=== PATIENT | male | born 1945 | race Caucasian/White ===

== ENCOUNTER 2017-03-12 12:01 | Inpatient (IN) ==
[2017-03-12] MEDS ORDERED: SODIUM CHLORIDE 0.9% 1,000 ML IV STA (12:18)
[2017-03-12] MEDS ORDERED: ONDANSETRON 4 MG/2 ML VIAL IV STA (12:18)
--- NOTE | 2017-03-12 12:23 | Emergency Department Note ---
Arrival - Arrival Chief Complaint: Nausea/Vomiting/Diarrhea Stated Complaint: vomiting, diarrhea, weakness, dehydrated ED Nursing Triage Note: Pt c/o nausea, vomiting, diarrhea, and weakness x 2 wks. Mode of Arrival: Wheelchair Limitations: No Limitations Source: Patient, RN Notes Reviewed Time Seen by Provider: 03/12/17 12:14 - History of Present Illness HPI Narrative: Patient is a 71-year-old white male with a history of nausea vomiting for 3 weeks. The patient has had a decrease in his appetite and decreased oral intake. There is no history of chills or fever. Patient denies any dysuria or urinary frequency. He does have some lower abdominal discomfort. Patient states that he has had a bowel movement this morning. He is status post cholecystectomy, appendectomy, and bilateral inguinal herniorrhaphies. Onset (ago): week(s) (3) Consistency: constant Quality: other Allergies/Adverse Reactions: Allergies Allergy/AdvReac Type Severity Reaction Status Date / Time acetaminophen AdvReac Verified 07/17/16 17:39 Home Medications: Home Medications Medication Instructions Recorded Confirmed Type ARIPiprazole [Abilify] 5 mg PO DAILY 03/13/16 09/16/16 History Simvastatin [Zocor] 10 mg PO DAILY 03/13/16 09/16/16 History Vilazodone HCl [Viibryd] 40 mg PO DAILY 03/17/16 09/16/16 History Apixaban [Eliquis] 5 mg PO BID #60 tablet 03/24/16 09/16/16 Rx Fluticasone/Vilanterol [Breo 1 puff INH DAILY 07/15/16 09/16/16 History Ellipta 200-25 Mcg INH] Furosemide Tab [Lasix Tab] 40 mg PO QOTHER DAY PRN 07/15/16 09/16/16 History LORazepam TAB [Ativan Tab] 1 mg PO TID PRN 07/15/16 09/16/16 History Carvedilol [Coreg] 25 mg PO BID 07/17/16 09/16/16 History Diltiazem Cd Cap [Cardizem CD] 120 mg PO DAILY #30 capsule 07/27/16 09/16/16 Rx Albuterol Inhaler [Proventil 2 puff INH Q4H PRN #1 inhaler 09/16/16 Rx Inhaler] Cyclobenzaprine HCl 5 mg PO TID #30 tablet 09/16/16 Rx HYDROcodone/ACETAMIN 5-325 [Sun 1 tablet PO Q6H PRN #10 tablet 09/16/16 Rx 5-325] Ubidecarenone [Coenzyme Q10] 200 mg PO BEDTIME 09/16/16 09/16/16 History cefUROXime axetil [Cefuroxime] 500 mg PO BID 09/16/16 09/16/16 History predniSONE TAB [PredniSONE] 60 mg PO DAILY #9 tablet 09/16/16 Rx Oxycodone HCl/Acetaminophen 1 each PO Q4-6H PRN #12 tablet 02/11/17 Rx [Percocet 7.5-325 mg Tablet] Review of System - Review of System 12 point system: reviewed and no additional remarkable complaints except as stated Medical,Surgical,& Family Hx - Medical History Cardio: History of: Cardiac Dysrhythmia (afib), CHF, Hypertension Psychological: History of: Anxiety Disorders, Depression Neurology: History of: Seizures No history of: Cerebrovascular Accident HEENT: History of: Dental Problems (Upper dentures) Endocrine: History of: Dyslipidemia Rheumatology: History of;: Gout Respiratory: History of: COPD, Pulmonary Embolism (2009 and 03/2016), Pneumonia Renal: History of: Renal Failure Gastrointestinal: History of: Pancreatitis (recurrent episodes in the past secondary to alcohol use) Musculoskeletal: History of: Back/Neck Problems, Herniated Disk, Musculoskeletal Problems (BACK "PROBLEMS") Other: No history of: Cancer - Surgical History Cardiac Surgeries: Sugical HX of: Cardiac Catheterization Thoracic Surgeries: Patient denies;: Organ Transplant Neurologic Surgeries: Patient denies: Neurologic Surgery HEENT Surgeries: Surgical HX of: Tonsilectomy & Adenoidectomy Abdominal Surgeries: Surgical HX of: Abdominal Surgery, Appendectomy, Cholecystectomy, Colonoscopy, EGD Orthopedic Surgeries: Surgical HX of;: Orthopedic Surgery (Carpal tunnel surgery (Bilateral)), Total Hip Replacement (left hip) - Family History Family History: Reports;: Family Cancer, Family Heart Disease (father-heart attack), Family Stroke - Social History Smoking Status: Former smoker Exam Vital Signs: Vital Signs Temperature 97.9 F 03/12/17 12:11 Pulse Rate 66 03/12/17 13:16 Respiratory Rate 10 L 03/12/17 13:16 Blood Pressure 101/75 03/12/17 13:16 O2 Sat by Pulse Oximetry 98 03/12/17 13:16 GENERAL: This is a chronically ill-appearing white male in no apparent distress. VITAL SIGNS: Reviewed HEENT: Head is atraumatic and normocephalic. Pupils are equal round react to light. Extraocular movements are intact. Oropharynx is benign with dry mucous membranes. NECK: Neck is soft and supple without tenderness. There are no masses. There is no lymphadenopathy. LUNGS: Lungs are clear to auscultation. Chest rises symmetrically. There is no chest wall tenderness. CV: Heart is regular rate and rhythm without murmurs rubs or gallops. ABDOMEN: Abdomen is soft, nontender to palpation. There are no abdominal abnormal masses palpated. There is no organomegaly. Bowel sounds are present and active. SKIN: Skin is warm and dry. No rash. EXTREMITIES: Patient has full range of motion without tenderness. There is no pedal edema. NEUROLOGIC: Awake alert and oriented 4 Cranial nerves II through XII are grossly intact. Motor is 5 over 5 in all extremities bilaterally. Course - Consultations Consultation #1: Discussed with hospitalist. Patient will be admitted to their service. Time: 15:00 Results - Labs CBC & BMP: 03/12/17 12:38 Lab Results: I have reviewed the patients labs - Diagnostic Findings Procedure: Abdominal x-ray: image reviewed by me (Nonspecific gas pattern, no free air, gas in the rectum.) Disposition Clinical Impression: Nausea & vomiting, Acute renal failure, Hypokalemia Case discussed with: patient Disposition: Still a Patient Condition: Stable
[2017-03-12] MEDS ORDERED: ONDANSETRON 4 MG/2 ML VIAL ONE (13:11)
--- NOTE | 2017-03-12 13:33 | XRay Report ---
XR abdomen complete w decub Indication: Nausea, vomiting, and diarrhea Comparison: Abdominal x-ray dated February 04, 2016 Technique: Frontal views of the abdomen in the supine and lateral decubitus position. Findings: There is mild distention of the transverse colon with associated air-fluid level. This finding is nonspecific but may be seen with mild colitis/diarrhea causing illness. No free intraperitoneal air. Visualized osseous and surrounding soft tissue structures appear grossly unchanged. Surgical clips within the right upper quadrant of the abdomen. Left total hip prosthesis. Presumed pelvic phleboliths. IMPRESSION: As above. PROCEDURE INTERPRETED AT [facility] DEPARTMENT OF RADIOLOGY Final Report Signed by: Dr Kentrell Wade
[2017-03-12 14:08] LABS: Apearance,Urine CLEAR (Clear); Bilirubin,Urine Negative (Negative); Blood, Urine Negative (Negative); Glucose,Urine (UA) Negative (Negative); Hyaline Casts,Urine 4 /LPF (0-3); Ketones,Urine Negative (Negative); Mucus,Urine Occasional /LPF (Occasional); Nitrite,Urine Negative (Negative); Protein,Urine Negative; RBC,Urine <1 /HPF (0-4); Urine Color Yellow (Yellow); Urine Specific Gravity 1.008 (1.001-1.035); Urine Urobilinogen < 2.0 EU/DL (0.2-1.0); WBC,Urine 1 /HPF (0-6)
[2017-03-12 14:20] LABS: Albumin 3.6 G/DL (3.4-5.0); Calcium 8.6 MG/DL (8.5-10.1); Osmolality,Calculated 285.7 MOS/KG (273-304); Potassium 2.9 MMOL/L (3.5-5.1); Total Protein 6.4 G/DL (6.4-8.3)
[2017-03-12] MEDS ORDERED: SODIUM CHLOR 0.9% KCL 40 MEQ 40 MEQ/1,000 ML BAG IV SCH (15:00)
--- NOTE | 2017-03-12 15:45 | Ultrasound Report ---
History is acute renal failure Right kidney is 8.8 cm in length Left kidney is 11.8 cm in length There is diffuse relative cortical thinning in the right kidney compared to the left There is a 2.1 cm simple cyst lower pole of the left kidney There is a 2.8 cm cyst with question of some low level echoes in the right kidney similar on a prior study of October 2016 and also present on a prior CT of 2008 There is arterial flow to both kidneys No hydronephrosis seen bilaterally Impression: 1. Relatively decreased size and diffuse cortical thinning in the right kidney raising question of underlying scarring or renal artery stenosis 2. Up to 2.7 cm bilateral renal cysts again seen PROCEDURE INTERPRETED AT [facility] DEPARTMENT OF RADIOLOGY Final Report Signed by: Dr. Kim Phan
[2017-03-12 15:51] LABS: Basophils % 0.4 % (0.0-0.8); Eosinophils # 0.4 10*3/uL (0.0-0.87); Eosinophils % 3.8 % (0.00-10.9); Hematocrit 45.6 VOL% (42.0-52.0); Hemoglobin 15.5 GM/DL (14.0-18.0); Immature Granulocytes % 0.5 %; Immature Granulocytes Absolute 0.05 #; Lymphocytes # 1.3 10*3/uL (1.4-4.0); Lymphocytes % 12.8 % (21.2-54.2); Mean Corpuscular Hemoglobin 31 PG (27-34); Mean Corpuscular Volume 89.8 FL (87-102); Mean Platelet Volume 11.2 FL (9.6-12.0); Monocytes # 0.9 10*3/uL (0.11-0.8); Monocytes % 9.4 % (1.7-12.7); Neutrophils # 7.2 10*3/uL (1.4-7.4); Neutrophils % 73.1 % (38.7-73.9); Platelet Count 189 T/CUMM (130-400); Red Blood Count 5.08 MC/CUMM (3.8-5.5); Red Cell Distribution Width 13.4 % (9.3-17.3); White Blood Count 9.9 T/CUMM (4-12)
--- NOTE | 2017-03-12 16:13 | Hospitalist History & Physical ---
<Chuyita Manley - Last Filed: 03/12/17 16:27> Assessment and Plan (1) Acute on chronic renal failure Status: Acute Assessment and plan: Multifactorial secondary to dehydration from Lasix, Bactrim, colitis, nausea vomiting. Consult Dr. Longoria Current Visit: Yes (2) Colitis Status: Acute Assessment and plan: Stool studies hold off on antibiotics until we know C. difficile is negative Zofran for nausea Current Visit: Yes (3) Hypertension Status: Chronic Assessment and plan: Hold blood pressure medicines as his pressure is low and we do not want to worsen his renal function Current Visit: No (4) Gout Status: Acute Assessment and plan: Hold colchicine creatinines too high to tolerate. Current Visit: No (5) Pulmonary emboli Status: Acute Assessment and plan: Continue Eliquis. Current Visit: No (6) Anxiety and depression Status: Acute Assessment and plan: Continue medications for now Current Visit: No (7) Narcotic dependence Status: Chronic Assessment and plan: Suboxone only do not give narcotics Current Visit: No (8) COPD (chronic obstructive pulmonary disease) Status: Chronic Assessment and plan: Duo nebs and inhaler Current Visit: No (9) Atrial fibrillation with RVR Status: Acute Assessment and plan: Continue Eliquis Current Visit: No (10) Nausea & vomiting Status: Acute Assessment and plan: Zofran as needed for nausea. May have colitis and may need IV antibiotics. Want to see stool for C. difficile before starting any other antibiotic Current Visit: Yes (11) Hypokalemia Status: Acute Assessment and plan: Replacing and recheck in am Current Visit: Yes History of Present Illness Chief complaint: n/v/d History of present illness: Mr. Slade is a 71 year old male with a history of nausea vomiting and diarrhea for 3 weeks. The patient has had a decrease in his appetite and decreased oral intake. There is no history of chills or fever. Patient denies any dysuria or urinary frequency. He does have some lower abdominal discomfort. Patient states that he has had a bowel movement this morning. He is status post cholecystectomy, appendectomy, and bilateral inguinal herniorrhaphies. Home Medications Medication Instructions Recorded Confirmed Type Simvastatin [Zocor] 10 mg PO QPM 03/13/16 03/12/17 History Vilazodone HCl [Viibryd] 40 mg PO DAILY 03/17/16 03/12/17 History Apixaban [Eliquis] 5 mg PO BID #60 tablet 03/24/16 03/12/17 Rx Furosemide Tab [Lasix Tab] 40 mg PO DAILY 07/15/16 03/12/17 History Carvedilol [Coreg] 25 mg PO BID 07/17/16 03/12/17 History Buprenorphine HCl 8 mg SL BID 03/12/17 03/12/17 History Colchicine 0.6 mg PO DAILY 03/12/17 03/12/17 History Docusate Sodium 100 mg PO DAILY 03/12/17 03/12/17 History Metoprolol Tartrate Tab [Lopressor 12.5 mg PO DAILY 03/12/17 03/12/17 History Tab] Potassium Chloride 10 meq PO DAILY 03/12/17 03/12/17 History Ubidecarenone [Co Q-10] 50 mg PO BEDTIME 03/12/17 03/12/17 History Ziprasidone HCl 60 mg PO BID W/MEALS 03/12/17 03/12/17 History metOLazone [Metolazone] 5 mg PO DAILY 03/12/17 03/12/17 History Allergies Allergy/AdvReac Type Severity Reaction Status Date / Time No Known Allergies Allergy Verified 03/12/17 16:07 Medical,Surgical,& Family Hx - Medical History Cardio: History of: Cardiac Dysrhythmia (afib), CHF, Hypertension Psychological: History of: Anxiety Disorders, Depression Neurology: History of: Seizures No history of: Cerebrovascular Accident HEENT: History of: Dental Problems (Upper dentures) Endocrine: History of: Dyslipidemia Rheumatology: History of;: Gout Respiratory: History of: COPD, Pulmonary Embolism (2009 and 03/2016), Pneumonia Renal: History of: Renal Failure Gastrointestinal: History of: Pancreatitis (recurrent episodes in the past secondary to alcohol use) Musculoskeletal: History of: Back/Neck Problems, Herniated Disk, Musculoskeletal Problems (BACK "PROBLEMS") Other: No history of: Cancer - Surgical History Cardiac Surgeries: Sugical HX of: Cardiac Catheterization Thoracic Surgeries: Patient denies;: Organ Transplant Neurologic Surgeries: Patient denies: Neurologic Surgery HEENT Surgeries: Surgical HX of: Tonsilectomy & Adenoidectomy Abdominal Surgeries: Surgical HX of: Abdominal Surgery, Appendectomy, Cholecystectomy, Colonoscopy, EGD Orthopedic Surgeries: Surgical HX of;: Orthopedic Surgery (Carpal tunnel surgery (Bilateral)), Total Hip Replacement (left hip) - Family History Family History: Reports;: Family Cancer, Family Heart Disease (father-heart attack), Family Stroke - Social History Smoking Status: Former smoker Frequency of Alcohol Use: None Marital Status: Lives With:: Spouse Functional capacity: uses cane/walker - Constitutional Constitutional: Present: fatigue - EENT Ears: Present: decreased hearing. Absent: ear discharge - Cardiovascular Cardiovascular: Present: dyspnea, dyspnea on exertion. Absent: chest pain at rest - Respiratory Respiratory: Present: dyspnea, dyspnea on exertion - Gastrointestinal Gastrointestinal: Present: diarrhea, nausea, vomiting. Absent: constipation - Genitourinary Genitourinary: Absent: dysuria - Psychiatric Psychiatric: Present: anxiety, depression - Endocrine Endocrine: Present: fatigue. Absent: cold intolerance - Hematologic/Lymphatic Hematologic/Lymphatic: Present: easy bleeding, easy bruising Exam - Constitutional Vitals: Period Temp Pulse Resp BP Sys/Rangel Pulse Ox Last 24 Hr 97.9 F-97.9 F 66-75 10-20 101-150/59-92 97-100 General appearance: no acute distress, over weight - Head Head exam: Present: normal inspection, normocephalic - Eye Eye exam: Present: EOMI. Absent: scleral icterus Pupils: Present: [place], normal accommodation - ENT ENT exam: Present: normal exam, normal external ear exam - Neck Neck exam: Absent: lymphadenopathy, thyromegaly - Respiratory Respiratory exam: Present: clear to auscultation bilaterally, decreased breath sounds. Absent: rhonchi, wheezes - Cardiovascular Cardiovascular exam: Present: regular rate and rhythm. Absent: systolic murmur - GI/Abdominal GI/Abdominal exam: Present: normal bowel sounds, soft. Absent: tenderness - Extremities Exam Extremities exam: Present: normal inspection, normal capillary refill. Absent: edema - Neurological Exam Neurological exam: Present: alert, oriented X3, CN II-XII intact, motor sensory deficit (diminished motor strength ), reflexes normal - Psychiatric Psychiatric exam: Present: depressed, flat affect - Skin Skin exam: Present: normal color, warm Results - Labs CBC & BMP: 03/12/17 12:38 03/12/17 12:38 Lab Results: I have reviewed the past 24 hour labs - Diagnostic Findings Procedure: Abdominal x-ray: report reviewed by me (Possible colitis), Ultrasound : report reviewed by me (Cortical thinning of the kidney possible renal artery stenosis.) <Lico Amin - Last Filed: 03/12/17 16:53> Assessment and Plan - Time spent with patient Time spent with patient: Greater than 30 minutes History of Present Illness History of present illness: Mr. Slade is a 71 year old white male with an extensive past medical history COPD, renal failure, CAD, CHF who presents to the ED with complaints of nausea, vomiting and diarrhea for 3 weeks. The patient and his , who is at bedside, report that the patient has been progressively getting worse for the last 3 weeks to a month. The patient reports that he was recently seen at [facility] and believes to have contracted a gastroenteritis at that time. Patient's says that there were "lots of children vomiting everywhere". Patient also notes that he recently finished Bactrim therapy status post melanoma excision of the right calf. Patient has decreased appetite as well as oral intake. He denies any hematemesis, melena or hematochezia. Patient and his believe that he has had a lifelong history of irritable bowel syndrome with constipation and diarrhea. Patient notes that he does take stool softeners as needed. Labs are remarkable for sodium 138, potassium 2.9, BUN 43 , creatinine 3.10. Patient is followed by Dr. Longoria and he has been consulted. Case has been discussed with Dr. Manley, and the patient will be admitted to hospital medicine service for further evaluation and treatment. Patient was desired to be full code. Medicines have been reviewed and reconciled. - Musculoskeletal Musculoskeletal: Present: arthralgias, back pain - Neurological Neurological: Present: numbness. Absent: confusion, dizziness Exam - Constitutional Vitals: Period Temp Pulse Resp BP Sys/Rangel Pulse Ox Last 24 Hr 97.9 F-97.9 F 66-76 10-20 101-150/59-92 97-100 Results - Labs CBC & BMP: 03/12/17 12:38 03/12/17 12:38
[2017-03-12] MEDS: POTASSIUM CHLORIDE INJ 40 MEQ in SODIUM CHLORIDE 0.45% 1,000 ML IV SCH (18:00)
[2017-03-12] MEDS ORDERED: MAGNESIUM SULF RIDER 2 GM in PREMIX 1 EACH IV ONE (18:24)
[2017-03-12] MEDS ORDERED: MAGNESIUM SULF RIDER 2 GM in PREMIX 1 EACH IV SCH (18:30)
[2017-03-12] MEDS: ALBUTEROL/IPRATROPIUM 3 ML NEB RESP TX SCH ×2 (19:37→23:46)
[2017-03-12] MEDS: PANTOPRAZOLE 40 MG VIAL IV SCH (20:15)
[2017-03-12] MEDS: APIXABAN 5 MG TABLET PO SCH (20:15)
[2017-03-12] MEDS: SUBUTEX 8 MG SL SCH (20:26)
[2017-03-13] MEDS: ALBUTEROL/IPRATROPIUM 3 ML NEB RESP TX SCH ×6 (02:43→23:30)
[2017-03-13] MEDS: POTASSIUM CHLORIDE INJ 40 MEQ in SODIUM CHLORIDE 0.45% 1,000 ML IV SCH ×2 (04:36→10:07)
[2017-03-13 06:19] LABS: Basophils % 0.4 % (0.0-0.8); Eosinophils # 0.4 10*3/uL (0.0-0.87); Eosinophils % 4.5 % (0.00-10.9); Hematocrit 42.2 VOL% (42.0-52.0); Hemoglobin 14.1 GM/DL (14.0-18.0); Immature Granulocytes % 0.4 %; Immature Granulocytes Absolute 0.04 #; Lymphocytes # 1.1 10*3/uL (1.4-4.0); Lymphocytes % 12.2 % (21.2-54.2); Mean Corpuscular HGB Conc 33.4 GM/DL (32-36); Mean Corpuscular Hemoglobin 31 PG (27-34); Mean Corpuscular Volume 91.1 FL (87-102); Mean Platelet Volume 10.6 FL (9.6-12.0); Monocytes # 0.8 10*3/uL (0.11-0.8); Monocytes % 8.7 % (1.7-12.7); Neutrophils # 6.8 10*3/uL (1.4-7.4); Neutrophils % 73.8 % (38.7-73.9); Platelet Count 166 T/CUMM (130-400); Red Blood Count 4.63 MC/CUMM (3.8-5.5); Red Cell Distribution Width 13.4 % (9.3-17.3); White Blood Count 9.2 T/CUMM (4-12)
[2017-03-13 06:52] LABS: Calcium 8.4 MG/DL (8.5-10.1); Osmolality,Calculated 291.1 MOS/KG (273-304); Potassium 4.1 MMOL/L (3.5-5.1)
[2017-03-13] MEDS: PANTOPRAZOLE 40 MG VIAL IV SCH ×2 (08:24→20:15)
[2017-03-13] MEDS: SUBUTEX 8 MG SL SCH ×2 (08:24→20:15)
[2017-03-13] MEDS: APIXABAN 5 MG TABLET PO SCH ×2 (08:25→20:15)
[2017-03-13] MEDS: SIMVASTATIN 10 MG TABLET PO SCH (08:25)
[2017-03-13] MEDS ORDERED: BREO ELLIPTA INH SCH (09:00)
[2017-03-13] MEDS ORDERED: ARIPiprazole 5 MG TABLET PO SCH (09:00)
[2017-03-13] MEDS ORDERED: methylPREDNISolone SOD SUC 40 MG/1 ML VIAL IV SCH (09:00)
[2017-03-13] MEDS: ONDANSETRON 4 MG/2 ML VIAL IV PRN ×2 (10:05→14:32)
[2017-03-13] MEDS: LORazepam 0.5 MG TABLET PO SCH ×3 (11:01→20:15)
[2017-03-13] MEDS: METOPROLOL TARTRATE 25 MG TABLET PO SCH (11:01)
[2017-03-13] MEDS: DOCUSATE SODIUM 100 MG CAPSULE PO SCH (11:01)
[2017-03-13] MEDS: SODIUM CHLORIDE 0.45% 1,000 ML IV SCH ×3 (11:02→20:16)
[2017-03-13 12:00] LABS: Bilirubin,Total 0.5 MG/DL (0.2-1.0)
[2017-03-13] MEDS ORDERED: LORazepam 0.5 MG TABLET PO SCH (15:00)
--- NOTE | 2017-03-13 15:42 | Hospitalist Progress Note ---
Assessment and Plan (1) Acute on chronic renal failure Status: Acute Assessment and plan: Improving with IV fluids. Dr. Longoria agrees with continue hydration. Continue to monitor. Current Visit: Yes (2) Colitis Status: Acute Assessment and plan: Patient no longer having diarrhea, start Invanz Current Visit: Yes (3) Hypertension Status: Chronic Assessment and plan: controlled Current Visit: No (4) Gout Status: Acute Assessment and plan: Hold colchicine creatinines too high to tolerate. cont steroids Current Visit: No (5) Pulmonary emboli Status: Acute Assessment and plan: Continue Eliquis. Current Visit: No (6) Anxiety and depression Status: Acute Assessment and plan: Restarted Geodon, vilazodone Current Visit: No (7) Narcotic dependence Status: Chronic Assessment and plan: Suboxone only do not give narcotics Current Visit: No (8) COPD (chronic obstructive pulmonary disease) Status: Chronic Assessment and plan: Duo nebs and inhaler Current Visit: No (9) Atrial fibrillation with RVR Status: Acute Assessment and plan: Continue Eliquis and metoprolol Current Visit: No (10) Nausea & vomiting Status: Acute Assessment and plan: Zofran as needed for nausea. Current Visit: Yes (11) Hypokalemia Status: Acute Assessment and plan: Resolved Current Visit: Yes (12) Hypomagnesemia Status: Acute Assessment and plan: Replaced and recheck in a.m. Current Visit: Yes Hospitalist: Subjective Interval history: Discussed case with Dr. Longoria. Patient is chronically unhappy. at bedside had long conversation with him about pain medicine once again. Patient is on Suboxone. He does have a gout flare which we are treating with IV steroids as he cannot take colchicine due to his kidneys. We have started back his Ativan. He is home medicines the Abilify he is no longer taking but he was recently started on Geodon which we will now restart. He is more alert and awake today. He was lethargic yesterday and I was concerned about some of his medicines not clearing his kidneys. Pharmacy has reviewed the medicines and is okay with restarting the medications currently on his list. Exam - Constitutional Vitals: Period Temp Pulse Resp BP Sys/Rangel Pulse Ox Last 24 Hr 97.9 F-98.8 F 63-94 13-20 100-144/65-90 92-99 Exam: Heart Rate-[RRR] Lungs-[CTAB] GI-[+bs soft, NT] Ext-[no edema] Neuro [Motor 5/5], [alert and oriented times 3] psych [unhappy mood and affect General [mild acute distress due to gout] Results - Labs CBC & BMP: 03/13/17 05:51 03/13/17 05:51 Lab Results: I have reviewed the past 24 hour labs - Diagnostic Findings Procedure: Ultrasound: report reviewed by me (Cortical thinning of the right kidney raising concern of renal artery stenosis versus underlying scarring.)
[2017-03-13] MEDS: ZIPRASIDONE 20 MG CAPSULE PO SCH (17:06)
[2017-03-13] MEDS: ERTAPENEM 1,000 MG in SODIUM CHLORIDE 0.9% 100 ML IV SCH (18:01)
[2017-03-13] MEDS: methylPREDNISolone SOD SUC 40 MG/1 ML VIAL IV SCH (20:15)
[2017-03-14] MEDS: ALBUTEROL/IPRATROPIUM 3 ML NEB RESP TX SCH ×5 (03:24→19:14)
[2017-03-14 05:17] LABS: Calcium 8.4 MG/DL (8.5-10.1); Osmolality,Calculated 285.4 MOS/KG (273-304); Potassium 3.9 MMOL/L (3.5-5.1)
[2017-03-14] MEDS: SODIUM CHLORIDE 0.45% 1,000 ML IV SCH ×5 (06:09→23:00)
[2017-03-14] MEDS: SUBUTEX 8 MG SL SCH ×2 (08:54→21:18)
[2017-03-14] MEDS: APIXABAN 5 MG TABLET PO SCH ×2 (08:55→21:18)
[2017-03-14] MEDS: ZIPRASIDONE 20 MG CAPSULE PO SCH ×2 (08:55→16:32)
[2017-03-14] MEDS: LORazepam 0.5 MG TABLET PO SCH ×3 (08:55→21:18)
[2017-03-14] MEDS: DOCUSATE SODIUM 100 MG CAPSULE PO SCH (08:55)
[2017-03-14] MEDS: METOPROLOL TARTRATE 25 MG TABLET PO SCH (08:55)
[2017-03-14] MEDS: PANTOPRAZOLE 40 MG VIAL IV SCH ×2 (08:56→21:18)
[2017-03-14] MEDS: SIMVASTATIN 10 MG TABLET PO SCH (08:56)
[2017-03-14] MEDS: methylPREDNISolone SOD SUC 40 MG/1 ML VIAL IV SCH ×2 (09:01→21:18)
--- NOTE | 2017-03-14 10:09 | Nephrology Progress Note ---
Nephrology - PN: Subj Interval history: Patient states his gout pain in his foot is better. Review of systems pulmonary denies shortness of breath Physical exam general the patient in no acute distress, he has trace pretibial edema Assessment/plan 1. Acute renal failure-this patient's creatinine is improved to 1.7 mg/dL from around 3.1 mg/dL. 2. Volume depletion-patient describes having nausea and vomiting for a couple weeks prior to his admission feeling very poorly. The patient is currently getting IV fluids 3. Gout-this is improved 4. Colitis-patient's abdominal symptoms seem to be improving. Exam (PN)-Nephrology - Vital Signs Vital signs: Period Temp Pulse Resp BP Sys/Rangel Pulse Ox Last 24 Hr 97.7 F-98.6 F 60-78 16-20 117-145/61-79 87-99 - Lab 03/13/17 05:51 03/14/17 03:52 Most recent lab results Calcium 8.4 MG/DL (8.5-10.1) L 03/14/17 03:52 Magnesium 2.2 MG/DL (1.8-2.4) 03/14/17 03:52
[2017-03-14] MEDS ORDERED: BISACODYL 5 MG TABLET PO PRN (10:48)
[2017-03-14] MEDS ORDERED: BISACODYL 5 MG TABLET PO ONE (10:58)
[2017-03-14] MEDS: ONDANSETRON 4 MG/2 ML VIAL IV PRN (11:26)
[2017-03-14] MEDS: POLYETHYLENE GLYCOL POWDER 17 GM PACK PO SCH (11:26)
--- NOTE | 2017-03-14 13:51 | Hospitalist Progress Note ---
Assessment and Plan (1) Acute on chronic renal failure Status: Acute Assessment and plan: Improving with IV fluids but will decrease down to 75 ML's per hour continue to monitor BMP possibly home in a.m. Current Visit: Yes (2) Colitis Status: Acute Assessment and plan: Continue invanz Current Visit: Yes (3) Hypertension Status: Chronic Assessment and plan: controlled Current Visit: No (4) Gout Status: Acute Assessment and plan: Pain controlled with steroids but Dr. Brewster feels that I can get him back colchicine renal adjusted. Current Visit: No (5) Pulmonary emboli Status: Acute Assessment and plan: Continue Eliquis. Current Visit: No (6) Anxiety and depression Status: Acute Assessment and plan: Continue Ativan, Geodon, vilazodone Current Visit: No (7) Narcotic dependence Status: Chronic Assessment and plan: Suboxone only do not give narcotics Current Visit: No (8) COPD (chronic obstructive pulmonary disease) Status: Chronic Assessment and plan: Duo nebs and inhaler Current Visit: No (9) Atrial fibrillation with RVR Status: Acute Assessment and plan: Continue Eliquis and metoprolol Current Visit: No (10) Nausea & vomiting Status: Acute Assessment and plan: Resolved Current Visit: Yes (11) Hypokalemia Status: Acute Assessment and plan: Resolved Current Visit: Yes (12) Hypomagnesemia Status: Acute Assessment and plan: Resolved Current Visit: Yes Hospitalist: Subjective Interval history: Discussed case with Dr. Brewster. He said it is okay to give him back the colchicine renal adjusted. Patient has not had a good bowel movement we will give him Dulcolax and MiraLAX. He feels much better today he slept last night and the steroids of taking care of his gout pain. Exam - Constitutional Vitals: Period Temp Pulse Resp BP Sys/Rangel Pulse Ox Last 24 Hr 97.6 F-98.6 F 60-78 16-20 117-145/61-79 87-98 Exam: Heart Rate-[RRR] Lungs-[CTAB] GI-[+bs soft, NT] Ext-[no edema] Neuro [Motor 5/5], [alert and oriented times 3] psych [unhappy mood and flat affect General [no acute distress] Results - Labs CBC & BMP: 03/13/17 05:51 03/14/17 03:52 Lab Results: I have reviewed the past 24 hour labs
[2017-03-14] MEDS: COLCHICINE 0.6 MG TABLET PO SCH (14:50)
[2017-03-14] MEDS: ERTAPENEM 1,000 MG in SODIUM CHLORIDE 0.9% 100 ML IV SCH (16:32)
[2017-03-15] MEDS: ALBUTEROL/IPRATROPIUM 3 ML NEB RESP TX SCH ×3 (00:10→07:59)
[2017-03-15] MEDS: SODIUM CHLORIDE 0.45% 1,000 ML IV SCH (03:29)
[2017-03-15 05:04] LABS: Calcium 8.6 MG/DL (8.5-10.1); Osmolality,Calculated 286.4 MOS/KG (273-304); Potassium 4.5 MMOL/L (3.5-5.1)
[2017-03-15] MEDS: ONDANSETRON 4 MG/2 ML VIAL IV PRN ×2 (05:27→10:00)
[2017-03-15] MEDS: PANTOPRAZOLE 40 MG VIAL IV SCH (08:43)
[2017-03-15] MEDS: ZIPRASIDONE 20 MG CAPSULE PO SCH (08:44)
[2017-03-15] MEDS: COLCHICINE 0.6 MG TABLET PO SCH (08:44)
[2017-03-15] MEDS: LORazepam 0.5 MG TABLET PO SCH (08:44)
[2017-03-15] MEDS: SIMVASTATIN 10 MG TABLET PO SCH (08:46)
[2017-03-15] MEDS: APIXABAN 5 MG TABLET PO SCH (08:46)
[2017-03-15] MEDS: METOPROLOL TARTRATE 25 MG TABLET PO SCH (08:46)
[2017-03-15] MEDS: POLYETHYLENE GLYCOL POWDER 17 GM PACK PO SCH (08:47)
[2017-03-15] MEDS: SUBUTEX 8 MG SL SCH (08:47)
[2017-03-15] MEDS: methylPREDNISolone SOD SUC 40 MG/1 ML VIAL IV SCH (09:08)
--- NOTE | 2017-03-15 09:26 | Discharge Summary ---
<Lico Amin - Last Filed: 03/15/17 08:57> Hospital Course - Hospital Course Hospital Course: Mr. Slade is a 69-year-old white male with history of atrial fib, pulmonary emboli, gout, narcotics and benzo dependence admitted through the [place] [facility] on 03/12/2017 with a history of nausea vomiting and diarrhea for 3 weeks. Patient presented with decreased appetite and decreased oral intake as well as lower abdominal discomfort. On admission the patient was found to have acute on chronic renal failure creatinine of 3.10, COPD exacerbation, colitis, and acute gouty flare. Renal ultrasound on admission revealed relatively decreased size of diffuse cortical thinning in the right kidney. We consulted Dr. Longoria for renal failure and the patient was started on gentle IV hydration as his acute renal failure was likely secondary to dehydration from Lasix, Bactrim, colitis and nausea and vomiting. Due to elevated creatinine levels, colchicine was held and the gout flare was treated with IV steroids (Solu-Medrol ). We continued the patient's Eliquis for his pulmonary emboli and atrial fibrillation as well as metoprolol for rate control. This patient's hospital course was relatively uncomplicated as his renal failure improved with IV fluids bringing the creatinine to 1.6, colitis is being treated with Invanz. With improved creatinine levels, we restarted colchicine renal adjusted. Duo nebs and inhaler for the COPD. Patient was given Dulcolax and MiraLAX to promote bowel movement. At this time the patient has reached maximum benefit from hospitalization and is stable for discharge. Discharge orders home with f/ u with PMD, Dr. Longoria and Dr Brewster or Adam. Discharge Plan - Discharge Data Disposition: Disch To Home/Self Care - Discharge Medications New metroNIDAZOLE TAB [Flagyl Cap/Tab] 500 mg PO TID #30 tablet Polyethylene Glycol Powder [Miralax] 17 gm PO DAILY predniSONE TAB [PredniSONE] 20 mg PO DAILY #30 tablet Albuterol/Ipratropium Neb [Duoneb] 3 ml RESP TX RT TID #90 vial Ciprofloxacin Tab [Cipro Tab] 500 mg PO BID #20 tablet Continue Simvastatin [Zocor] 10 mg PO QPM Vilazodone HCl [Viibryd] 40 mg PO DAILY Apixaban [Eliquis] 5 mg PO BID #60 tablet Metoprolol Tartrate Tab [Lopressor Tab] 12.5 mg PO DAILY Buprenorphine HCl 8 mg SL BID Colchicine 0.3 mg PO DAILY #0 Furosemide Tab [Lasix Tab] 20 mg PO DAILY PRN #0 PRN Reason: leg edema LORazepam [Lorazepam] 0.5 mg PO TID PRN #0 PRN Reason: Anxiety Ubidecarenone [Co Q-10] 50 mg PO BEDTIME Ziprasidone HCl 60 mg PO BID W/MEALS Discontinued Potassium Chloride 10 meq PO DAILY metOLazone [Metolazone] 5 mg PO DAILY Docusate Sodium 100 mg PO DAILY No Action Carvedilol [Coreg] 25 mg PO BID - Follow Up or Referral Follow Up: dr ryan [Other] - 1 Week Gaetano Longoria MD [Physician] - 2 Weeks Ney Medina MD [Physician] - 2 Weeks (colitis ) - Forms/Instructions Exam - Constitutional Vitals: Period Temp Pulse Resp BP Sys/Rangel Pulse Ox Last 24 Hr 97.4 F-98.0 F 63-99 16-20 121-144/63-86 93-98 Discharge Results Procedures and tests throughout hospitalization: Pending Orders 03/12/17 17:02 C. Diff Toxins A & B Stat Norovirus, Stool Stat Occult Blood, Stool Stat Stool Culture Stat Stool for WBCs Stat Labs on day of discharge: Labs from last 24 hours 03/15/17 03/15/17 03/14/17 03:43 03:43 20:30 Sodium 140 Potassium 4.5 Chloride 105 Carbon Dioxide 25 Anion Gap 14.5 BUN 31 H Creatinine 1.60 H GFR Calculation 53 BUN/Creatinine Ratio 19.00 Glucose 119 H POC Glucose 156 H Calculated Osmolality 286.4 Calcium 8.6 Magnesium 2.1 DS: Provider Date of admission: 03/12/17 15:27 Primary care physician: Chica Swain M.D. Attending physician on admission: Chuyita Manley MD Consults: 03/12/17 17:02 Consult to Physician [CONS] Routine Comment: renal failure Consulting Provider: Gaetano Longoria Person Notified: Adrianna Date Notified: 03/13/17 Time Notified: 09:14 03/12/17 18:24 Consult to Occupational Therapy [CONS] Routine Reason for Occupational Therapy: Evaluate and Treat Consult to Physical Therapy [CONS] Routine Reason for Physical Therapy: Evaluate and Treat 03/13/17 10:15 Consult to Pharmacy [CONS] Routine Reason for Pharmacy Consult: Inpatient Med Review Comment: not sure which home meds restart with RF Discharging clinician: Lico RIVERO Expected date of discharge: 03/15/17 <Chuyita Manley - Last Filed: 03/15/17 11:16> Hospital Course - Time spent with patient Time with patient DS: Greater than 30 minutes (60 min) Diagnosis - Discharge Diagnosis (1) Acute on chronic renal failure Status: Acute (2) Colitis Status: Acute (3) Hypertension Status: Chronic (4) Gout Status: Acute (5) Pulmonary emboli Status: Acute (6) Anxiety and depression Status: Acute (7) Narcotic dependence Status: Chronic (8) COPD (chronic obstructive pulmonary disease) Status: Chronic (9) Atrial fibrillation with RVR Status: Acute (10) Nausea & vomiting Status: Acute (11) Hypokalemia Status: Acute (12) Hypomagnesemia Status: Acute Discharge Plan - Discharge Data Condition at Discharge: Stable Discharge Diet: heart healthy Activity: resume usual activities as tolerated Hygiene: no restrictions Weight Bearing at Discharge: full weight bearing Exam - Constitutional General appearance: normal weight, no acute distress - Respiratory Respiratory exam: Present: clear to auscultation bilaterally. Absent: rhonchi, wheezes - Cardiovascular Cardiovascular exam: Present: regular rate and rhythm - GI/Abdominal GI/Abdominal exam: Present: normal bowel sounds, soft. Absent: tenderness - Extremities Exam Extremities exam: Present: normal inspection, normal capillary refill - Neurological Exam Neurological exam: Present: alert, oriented X3
[2017-03-15] MEDS: ERTAPENEM 1,000 MG in SODIUM CHLORIDE 0.9% 100 ML IV SCH (11:18)
[2017-03-15 13:32] VITALS: BP 146/83
--- NOTE | 2017-03-15 21:56 | Nephrology Consult Note ---
History of Present Illness Chief complaint: ARF on CRF History of present illness: This is a late entry note for 03/13/2017 Mr. Slade is a 71 year old male admitted with a two-week history of nausea vomiting and diarrhea. History of chronic renal insufficiency. I have followed him as an outpatient. His creatinine was 1.5 seen in the office 2016. Function was noted to be significantly worse at the time of this admission. Home Medications Medication Instructions Recorded Confirmed Type Simvastatin [Zocor] 10 mg PO QPM 03/13/16 03/12/17 History Vilazodone HCl [Viibryd] 40 mg PO DAILY 03/17/16 03/12/17 History Apixaban [Eliquis] 5 mg PO BID #60 tablet 03/24/16 03/12/17 Rx Carvedilol [Coreg] 25 mg PO BID 07/17/16 03/12/17 History Buprenorphine HCl 8 mg SL BID 03/12/17 03/12/17 History Metoprolol Tartrate Tab [Lopressor 12.5 mg PO DAILY 03/12/17 03/12/17 History Tab] Ubidecarenone [Co Q-10] 50 mg PO BEDTIME 03/12/17 03/12/17 History Ziprasidone HCl 60 mg PO BID W/MEALS 03/12/17 03/12/17 History Albuterol/Ipratropium Neb [Duoneb] 3 ml RESP TX RT TID #90 vial 03/15/17 Rx Ciprofloxacin Tab [Cipro Tab] 500 mg PO BID #20 tablet 03/15/17 Rx Colchicine 0.3 mg PO DAILY #0 03/15/17 03/12/17 Rx Furosemide Tab [Lasix Tab] 20 mg PO DAILY PRN #0 03/15/17 03/12/17 Rx LORazepam [Lorazepam] 0.5 mg PO TID PRN #0 03/15/17 03/12/17 Rx Polyethylene Glycol Powder 17 gm PO DAILY 03/15/17 Rx [Miralax] metroNIDAZOLE TAB [Flagyl Cap/Tab] 500 mg PO TID #30 tablet 03/15/17 Rx predniSONE TAB [PredniSONE] 20 mg PO DAILY #30 tablet 03/15/17 Rx Allergies Allergy/AdvReac Type Severity Reaction Status Date / Time No Known Allergies Allergy Verified 03/12/17 16:07 Medical,Surgical,& Family Hx - Medical History Cardio: History of: Cardiac Dysrhythmia (afib), CHF, Hypertension Psychological: History of: Anxiety Disorders, Depression Neurology: History of: Seizures No history of: Cerebrovascular Accident HEENT: History of: Dental Problems (Upper dentures) Endocrine: History of: Dyslipidemia Rheumatology: History of;: Gout Respiratory: History of: COPD, Pulmonary Embolism (2009 and 03/2016), Pneumonia Renal: History of: Renal Failure Gastrointestinal: History of: Pancreatitis (recurrent episodes in the past secondary to alcohol use) Musculoskeletal: History of: Back/Neck Problems, Herniated Disk, Musculoskeletal Problems (BACK "PROBLEMS") Other: No history of: Cancer - Surgical History Cardiac Surgeries: Sugical HX of: Cardiac Catheterization Thoracic Surgeries: Patient denies;: Organ Transplant Neurologic Surgeries: Patient denies: Neurologic Surgery HEENT Surgeries: Surgical HX of: Tonsilectomy & Adenoidectomy Abdominal Surgeries: Surgical HX of: Abdominal Surgery, Appendectomy, Cholecystectomy, Colonoscopy, EGD Orthopedic Surgeries: Surgical HX of;: Orthopedic Surgery (Carpal tunnel surgery (Bilateral)), Total Hip Replacement (left hip) - Family History Family History: Reports;: Family Cancer, Family Heart Disease (father-heart attack), Family Stroke - Social History Smoking Status: Former smoker Frequency of Alcohol Use: None Type of Drug Use: None Review of Systems 12 point system: reviewed and no additional remarkable complaints except as stated Exam - Vital Signs Vital signs: Period Temp Pulse Resp BP Sys/Rangel Pulse Ox Last 24 Hr 97.4 F-97.7 F 64-92 16-20 130-146/63-86 93-99 Exam: Gen.: Alert and oriented x3. ENT: Pupils equal round reactive to light. EOMs intact. Mucous membranes moist. Neck: Supple. No JVD or bruit. Cardiovascular: Regular rate and rhythm. No murmur rub or gallop Lungs: Clear Abdomen: Soft. Nontender. Positive bowel sounds. No organomegaly Extremities: No edema Results - Labs CBC & BMP: 03/13/17 05:51 03/15/17 03:43 Assessment and Plan (1) Acute on chronic renal failure Status: Acute Assessment and plan: 81-year-old man with: * CRF 3. Baseline creatinine approximately 1.5 * ARF. He is clinically volume depleted. He was taking Bactrim prior to admission as well as diuretics. Fluid losses due to nausea vomiting and diarrhea. Agree with IV fluids. Diuretics held * Gout * Paroxysmal A. fib * Hypertension (2) COPD (chronic obstructive pulmonary disease) Status: Acute (3) Colitis Status: Acute (4) Gout Status: Acute (5) Nausea & vomiting Status: Acute (6) Paroxysmal atrial fibrillation Status: Acute (7) Chronic kidney disease, stage III (moderate) Status: Chronic (8) Hypertension Status: Chronic Specialty Discharge - Follow Up or Referrals Follow up with: dr ryan [Other] - 1 Week Gaetano Longoria MD [Physician] - 2 Weeks Ney Medina MD [Physician] - 2 Weeks (colitis )
== END 2017-03-15 13:34 | disposition home or self-care (01) | DRG 683 ==
LOC: N.ED 12:01 → N.EDINP 15:27 → N.5E 15:57
PROVIDERS: ADMIT Internal Medicine; ATTEND Internal Medicine

== ENCOUNTER 2017-03-30 09:35 | Inpatient (IN) ==
[2017-03-30] MEDS ORDERED: SODIUM CHLORIDE 0.9% 500 ML IV STA (09:50)
[2017-03-30] MEDS ORDERED: HYDROmorphone 2 MG/1 ML VIAL IV STA (09:50)
[2017-03-30] MEDS ORDERED: ONDANSETRON 4 MG/2 ML VIAL IV STA (09:50)
[2017-03-30 10:01] LABS: Basophils % 0.6 % (0.0-0.8); Eosinophils # 0.2 10*3/uL (0.0-0.87); Eosinophils % 3.5 % (0.00-10.9); Hematocrit 43.5 VOL% (42.0-52.0); Immature Granulocytes % 0.5 %; Immature Granulocytes Absolute 0.03 #; Lymphocytes # 0.8 10*3/uL (1.4-4.0); Lymphocytes % 12.7 % (21.2-54.2); Mean Corpuscular HGB Conc 34.5 GM/DL (32-36); Mean Corpuscular Hemoglobin 31 PG (27-34); Mean Corpuscular Volume 89.3 FL (87-102); Mean Platelet Volume 10.6 FL (9.6-12.0); Monocytes # 0.5 10*3/uL (0.11-0.8); Monocytes % 8.3 % (1.7-12.7); Neutrophils # 4.7 10*3/uL (1.4-7.4); Neutrophils % 74.4 % (38.7-73.9); Platelet Count 194 T/CUMM (130-400); Red Blood Count 4.87 MC/CUMM (3.8-5.5); Red Cell Distribution Width 13.7 % (9.3-17.3); White Blood Count 6.4 T/CUMM (4-12)
--- NOTE | 2017-03-30 10:17 | XRay Report ---
Exam: XR chest 1V portable Date: 03/30/2017 9:50 AM Indication: Abdominal pain Comparison: 09/16/2016 Technical: Portable AP Findings: Cardiomegaly is present. Old right rib fractures are present involving the sixth and seventh and eighth rib. Mild cardiomegaly. External cardiac leads are present. Calcified nodes present in the perihilar regions. Lateral marginal osteophytes thoracic spine. No pneumothorax Impression: 1. Cardiomegaly without decompensation 2. Degenerative spondylosis 3. Old rib fractures 4. No acute cardiopulmonary pathology PROCEDURE INTERPRETED AT [facility] DEPARTMENT OF RADIOLOGY Final Report Signed by: Dr. Siva Hendrix
--- NOTE | 2017-03-30 10:19 | CT Report ---
Exam: CT scan of brain without contrast Date: 03/30/2017 Indication: Headache Comparison: 07/18/2016 Patient's classification: Emergency department Technical: Images were obtained from the skull base to the vertex without the use of intravenous contrast. Dose reduction was performed with decreasing kv and mA and automated exposure Total DLP: 970.1 mGy*cm Findings: There is enlargement of the ventricular system present. The brainstem is intact. The cerebellum reveals no acute findings. Small vessel changes are present with decreased attenuation in the periventricular subcortical white matter regions. Nasal septum is deviated to the left. The paranasal sinuses globes and cell and mastoids are unremarkable. Impression: 1. Small vessel ischemic change 2. No acute hemorrhage infarction or mass effect 3. Cerebral cortical atrophy PROCEDURE INTERPRETED AT [facility] DEPARTMENT OF RADIOLOGY Final Report Signed by: Dr. Siva Hendrix
--- NOTE | 2017-03-30 10:29 | CT Report ---
History: Left lower quadrant abdominal tenderness Date: 03/30/2017 Study: CT abdomen and pelvis without contrast Comparison exam: Noncontrast CT abdomen and pelvis August 04, 2015 Technique: Spiral CT sections were obtained from the lung bases to the pubic symphysis without contrast. The CT exam was performed using one or more of the following dose reduction techniques: Automated exposure control, adjustment of the mA and/or kV according to patient size, or use of iterative reconstruction technique. CT abdomen: There is no estelita pneumonia in the partially visualized lung bases. There is no gross pleural or pericardial effusion. The gallbladder is surgically absent. Surgical clips are noted at the EG junction. The liver, spleen, pancreas, adrenal glands, and bile ducts are unremarkable in noncontrast CT appearance. Exophytic rounded renal lesions are noted bilaterally, shown to be renal cysts on the March 12, 2017 renal ultrasound. This includes a 34 mm lesion at the lower pole right kidney and 23 mm lesion anterior mid left kidney. There is no hydronephrosis. There are at least 2 nonobstructing right renal stones measuring 3 mm or less. There is no radiopaque ureteral stone. There is a small equivocal 1 to 2 mm left renal stone. There is no aneurysm of the moderately calcified abdominal aorta. There is no evidence of pneumoperitoneum. There is diverticulosis without estelita diverticulitis. There is no gross lymphadenopathy. CT pelvis: There is a moderate amount of stool in the rectum and distal colon. There is no soft tissue mass or abnormal fluid collection associated with the pelvis. There is degenerative disc disease of spine. There is metallic artifact in the pelvis related to the patient's left hip prosthesis. Impression: No definite acute process. Diverticulosis without estelita diverticulitis. Nephrolithiasis without ureterolithiasis or hydronephrosis. Moderate amount of stool in the rectum and distal colon. Bilateral renal cysts PROCEDURE INTERPRETED AT [facility] DEPARTMENT OF RADIOLOGY Final Report Signed by: Dr. Nirmala Ortiz
[2017-03-30 10:30] LABS: Albumin 3.5 G/DL (3.4-5.0); Bilirubin,Total 0.7 MG/DL (0.2-1.0); Magnesium 1.7 MG/DL (1.8-2.4); Osmolality,Calculated 277.4 MOS/KG (273-304); Potassium 3.7 MMOL/L (3.5-5.1); Total Protein 5.8 G/DL (6.4-8.3)
[2017-03-30] MEDS ORDERED: ONDANSETRON 4 MG/2 ML VIAL ONE (10:30)
[2017-03-30] MEDS ORDERED: HYDROmorphone 2 MG/1 ML VIAL ONE (10:31)
--- NOTE | 2017-03-30 10:59 | Emergency Department Note ---
Rudy Avendaño Mantricia, am scribing for, and in the presence of, Eddi Marcelino MD 09:55. Chari Avendaño Phillip K, MD, personally performed the services described in this documentation, ascribed by Finn Grant in my presence, and it is both accurate and complete 058 . 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 Pt states that he was seen at ED and hospitalized for the same symptoms 10 days ago; he was told he had colitis. He reports that he vomited 3 times this morning and and his last BM was yesterday. Pt has a PMHx of chronic back pain, HTN, and DVT and has a PSHx of appendicitis. He reports that his last scope was at least 7 years ago. Pt also states that a headache woke him up last night at 2200. He reports no other complaints to ED. Onset (ago): day(s) Consistency: constant Allergies/Adverse Reactions: Allergies Allergy/AdvReac Type Severity Reaction Status Date / Time No Known Allergies Allergy Unverified 03/30/17 09:40 Home Medications: Home Medications Medication Instructions Recorded Confirmed Type Simvastatin [Zocor] 10 mg PO QPM 03/13/16 03/12/17 History Vilazodone HCl [Viibryd] 40 mg PO DAILY 03/17/16 03/12/17 History Apixaban [Eliquis] 5 mg PO BID #60 tablet 03/24/16 03/12/17 Rx Carvedilol [Coreg] 25 mg PO BID 07/17/16 03/12/17 History Buprenorphine HCl 8 mg SL BID 03/12/17 03/12/17 History Metoprolol Tartrate Tab [Lopressor 12.5 mg PO DAILY 03/12/17 03/12/17 History Tab] Ubidecarenone [Co Q-10] 50 mg PO BEDTIME 03/12/17 03/12/17 History Ziprasidone HCl 60 mg PO BID W/MEALS 03/12/17 03/12/17 History Albuterol/Ipratropium Neb [Duoneb] 3 ml RESP TX RT TID #90 vial 03/15/17 Rx Ciprofloxacin Tab [Cipro Tab] 500 mg PO BID #20 tablet 03/15/17 Rx Colchicine 0.3 mg PO DAILY #0 03/15/17 03/12/17 Rx Furosemide Tab [Lasix Tab] 20 mg PO DAILY PRN #0 03/15/17 03/12/17 Rx LORazepam [Lorazepam] 0.5 mg PO TID PRN #0 03/15/17 03/12/17 Rx Polyethylene Glycol Powder 17 gm PO DAILY 03/15/17 Rx [Miralax] metroNIDAZOLE TAB [Flagyl Cap/Tab] 500 mg PO TID #30 tablet 03/15/17 Rx predniSONE TAB [PredniSONE] 20 mg PO DAILY #30 tablet 03/15/17 Rx Review of System - Review of System 12 point system: reviewed and no additional remarkable complaints except as stated - Review of System Constitutional: Absent: chills, diaphoresis Respiratory: Absent: cough Cardiovascular: Absent: chest pain Gastrointestinal: Present: abdominal pain, nausea, vomiting, diarrhea Musculoskeletal: Present: back pain (chronic). Absent: leg pain, neck pain Medical,Surgical,& Family Hx - Medical History Cardio: History of: Cardiac Dysrhythmia (afib), CHF, Hypertension Psychological: History of: Anxiety Disorders, Depression Neurology: History of: Seizures No history of: Cerebrovascular Accident HEENT: History of: Dental Problems (Upper dentures) Endocrine: History of: Dyslipidemia Rheumatology: History of;: Gout Respiratory: History of: COPD, Pulmonary Embolism (2009 and 03/2016), Pneumonia Renal: History of: Renal Failure Gastrointestinal: History of: Pancreatitis (recurrent episodes in the past secondary to alcohol use) Musculoskeletal: History of: Back/Neck Problems, Herniated Disk, Musculoskeletal Problems (BACK "PROBLEMS") Other: No history of: Cancer - Surgical History Cardiac Surgeries: Sugical HX of: Cardiac Catheterization Thoracic Surgeries: Patient denies;: Organ Transplant Neurologic Surgeries: Patient denies: Neurologic Surgery HEENT Surgeries: Surgical HX of: Tonsilectomy & Adenoidectomy Abdominal Surgeries: Surgical HX of: Abdominal Surgery, Appendectomy, Cholecystectomy, Colonoscopy, EGD Orthopedic Surgeries: Surgical HX of;: Orthopedic Surgery (Carpal tunnel surgery (Bilateral)), Total Hip Replacement (left hip) - Family History Family History: Reports;: Family Cancer, Family Heart Disease (father-heart attack), Family Stroke - Social History Smoking Status: Unknown if ever smoked Frequency of Alcohol Use: Unknown Type of Drug Use: Unknown Exam Vital Signs: Vital Signs Temperature 98.1 F 03/30/17 09:35 Pulse Rate 66 03/30/17 10:30 Respiratory Rate 17 03/30/17 10:30 Blood Pressure 144/79 03/30/17 10:30 O2 Sat by Pulse Oximetry 96 03/30/17 10:30 - General General appearance: alert, in no apparent distress - Head Head exam: Present: atraumatic, normocephalic, normal inspection - Eye Eye exam: Present: normal appearance, PERRL, EOMI - ENT ENT exam: Present: normal exam, normal oropharynx, mucous membranes moist, TM's normal bilaterally, normal external ear exam - Neck Neck exam: Present: normal inspection, full ROM, trachea midline. Absent: tenderness - Chest Chest inspection: Present: normal inspection, symmetric chest wall rise. Absent : tenderness - Respiratory Respiratory exam: Present: normal lung sounds bilaterally - Cardiovascular Cardiovascular exam: Present: regular rate, normal rhythm, normal heart sounds - Abdominal Exam Abdominal exam: Present: soft, tenderness (LLQ TTP), normal bowel sounds. Absent: distention, guarding, rebound - Rectal Exam Rectal exam: Present: normal inspection, normal rectal tone, heme (-) stool - Extremities Exam Extremities exam: Present: normal inspection, full ROM, normal capillary refill. Absent: tenderness - Back Exam Back exam: Present: normal inspection, full ROM. Absent: tenderness - Neurological Exam Neurological exam: Present: alert, oriented X3, CN II-XII intact, normal gait, reflexes normal - Psychiatric Psychiatric exam: Present: normal affect, normal mood - Skin Skin exam: Present: warm, dry, intact, normal color Course Course Narrative: Patient discussed with the hospitalist. Results - Labs CBC & BMP: 03/30/17 09:36 03/30/17 09:36 Lab Results: I have reviewed the patients labs - Diagnostic Findings Procedure: Chest x-ray: report reviewed by me (1. Cardiomegaly without decompensation 2. Degenerative spondylosis 3. Old rib fractures 4. No acute cardiopulmonary pathology), CT Abdomen and Pelvis: report reviewed by me (No definite acute process. Diverticulosis without estelita diverticulitis. Nephrolithiasis without ureterolithiasis or hydronephrosis. moderate amount of stool in the rectum and distal.), CT: report reviewed by me (Head: 1. Small vessel ischemic change 2. No acute hemorrhage infarction or mass effect 3. Cerebral cortical atrophy) Disposition Clinical Impression: Intractable nausea and vomiting, History of colitis, Diverticulosis Case discussed with: patient Disposition: Still a Patient Condition: Guarded Additional Instructions: Admit to the hospitalist.
--- NOTE | 2017-03-30 11:31 | Hospitalist History & Physical ---
Assessment and Plan (1) Atrial fibrillation Status: Acute Assessment and plan: Patient has a known history of atrial fibrillation. He is currently on Coreg and Lopressor for rate control. He is treated with Eliquis for anticoagulation purposes. We will place the patient on telemetry for continuous cardiac monitoring to monitor his rate control. Although his rate was controlled for the most part during the ED encounter, he did have episodes in which his rate was markedly elevated. We will consult cardiology to evaluate and assist during the clinical encounter. Current Visit: Yes (2) Diverticulosis Status: Acute Assessment and plan: We will gently rehydrate, promote bowel rest, pain control, PPIs, and consult GI to evaluate and assist. Current Visit: Yes (3) Intractable nausea and vomiting Status: Acute Assessment and plan: We will gently rehydrate, promote bowel rest, antiemetics, PPIs, and consult gastroenterology to evaluate and treat. Current Visit: Yes (4) Hypomagnesemia Status: Acute Assessment and plan: Magnesium was noted at 1.7. We will start the magnesium replacement protocol and correct the deficit. We will recheck mag level in a.m. Current Visit: No History of Present Illness Chief complaint: Nausea/vomiting/diarrhea History of present illness: This is a very pleasant 71-year-old male that presented to the ED at [facility] via EMS this morning for the evaluation of nausea, vomiting, and diarrhea. Patient has a medical history significant for: Congestive heart failure, hypertension, anxiety disorder, depression, seizure disorder, dyslipidemia, atrial fibrillation, gouty arthritis, chronic obstructive pulmonary disease, pulmonary embolism(2009 and 03/2016), pneumonia, renal failure, pancreatitis, chronic neck and back pain. Patient has a surgical history of cardiac catheterization, tonsillectomy, adenoidectomy, appendectomy, cholecystectomy, carpal tunnel surgery bilateral, left total hip replacement, colonoscopy, and EGD. The patient reports a recent encounter here at [facility] 10 days prior to presentation. He was assessed and told that he had colitis and was subsequently discharged home. The patient reports that the above symptoms never actually improved. The patient reports multiple episodes of vomiting and loose stools this morning prior to presentation; however denies melena and hematochezia at the time of assessment. In addition, the patient reports an excruciating headache that originated around 11 PM last night. The patient reports that his primary care physician is Dr. jack Espinoza. At the time of ED presentation, the patient was assessed. Labs were obtained; hematology panel was essentially unremarkable however neutrophil% was noted at 74.4, lymphocytes% was noted at 12.7, lymphocyte #was noted at 0.8. Chemistry panel reported a sodium at 140, potassium 3.7, chloride 108, carbon dioxide 25, anion gap 10.7, BUN 11, creatinine 1.50, glucose 107, calculated osmolality 277.4, calcium 9.0, magnesium 1.7, AST 17, ALT 22, alkaline phosphatase 55, total protein 5.8, and lipase at 67.0. CT head without contrast reported small vessel ischemic change, no acute hemorrhage infarction or mass-effect, and cerebral cortical atrophy. Chest x- ray reported cardiomegaly without decompensation, degenerative spondylolysis, old rib fractures, no acute cardiopulmonary pathology. CT abdomen and pelvis without contrast reported no definite acute process, diverticulosis without estelita diverticulitis, nephrolithiasis without urethral lithiasis or hydronephrosis, moderate amount of stool was noted in the rectum and distal colon and the presence of bilateral renal cyst were noted. After brief discussion with both Dr. Marcelino and Dr. Perez, the patient will be admitted to the hospitalist services for continuation of care. Due to the extensive cardiac history, we will consult cardiology to evaluate and assist during the clinical encounter. Home Medications Medication Instructions Recorded Confirmed Type Simvastatin [Zocor] 10 mg PO QPM 03/13/16 03/30/17 History Vilazodone HCl [Viibryd] 40 mg PO DAILY 03/17/16 03/30/17 History Apixaban [Eliquis] 5 mg PO BID #60 tablet 03/24/16 03/30/17 Rx Carvedilol [Coreg] 25 mg PO BID 07/17/16 03/30/17 History Ubidecarenone [Co Q-10] 50 mg PO BEDTIME 03/12/17 03/30/17 History Ziprasidone HCl 60 mg PO BID W/MEALS 03/12/17 03/30/17 History Albuterol/Ipratropium Neb [Duoneb] 3 ml RESP TX RT TID #90 vial 03/15/17 Rx Colchicine 0.3 mg PO DAILY PRN 03/30/17 03/30/17 History Furosemide Tab [Lasix Tab] 20 mg PO DAILY PRN 03/30/17 03/30/17 History LORazepam [Lorazepam] 1 mg PO TID PRN 03/30/17 03/30/17 History predniSONE TAB [PredniSONE] 20 mg PO DAILY PRN 03/30/17 03/30/17 History Allergies Allergy/AdvReac Type Severity Reaction Status Date / Time No Known Allergies Allergy Unverified 03/30/17 09:40 Medical,Surgical,& Family Hx - Medical History Cardio: History of: Cardiac Dysrhythmia (afib), CHF, Hypertension Psychological: History of: Anxiety Disorders, Depression Neurology: History of: Seizures No history of: Cerebrovascular Accident HEENT: History of: Dental Problems (Upper dentures) Endocrine: History of: Dyslipidemia Rheumatology: History of;: Gout Respiratory: History of: COPD, Pulmonary Embolism (2009 and 03/2016), Pneumonia Renal: History of: Renal Failure Gastrointestinal: History of: Pancreatitis (recurrent episodes in the past secondary to alcohol use) Musculoskeletal: History of: Back/Neck Problems, Herniated Disk, Musculoskeletal Problems (BACK "PROBLEMS") Other: No history of: Cancer - Surgical History Cardiac Surgeries: Sugical HX of: Cardiac Catheterization Thoracic Surgeries: Patient denies;: Organ Transplant Neurologic Surgeries: Patient denies: Neurologic Surgery HEENT Surgeries: Surgical HX of: Tonsilectomy & Adenoidectomy Abdominal Surgeries: Surgical HX of: Abdominal Surgery, Appendectomy, Cholecystectomy, Colonoscopy, EGD Orthopedic Surgeries: Surgical HX of;: Orthopedic Surgery (Carpal tunnel surgery (Bilateral)), Total Hip Replacement (left hip) - Family History Family History: Reports;: Family Cancer, Family Heart Disease (father-heart attack), Family Stroke - Social History Smoking Status: Unknown if ever smoked Frequency of Alcohol Use: Unknown Type of Drug Use: Unknown 12 point system: reviewed and no additional remarkable complaints except as stated Exam - Constitutional Vitals: Period Temp Pulse Resp BP Sys/Rangel Pulse Ox Last 24 Hr 98.1 F-98.1 F 66-72 17-18 135-157/79-84 96-99 General appearance: normal weight, mild distress - Head Head exam: Present: normal inspection, normocephalic, atraumatic - Eye Eye exam: Present: EOMI Pupils: Present: KODAK, normal accommodation - ENT ENT exam: Present: normal exam, normal external ear exam, normal oropharynx - Neck Neck exam: Present: normal inspection. Absent: lymphadenopathy, meningismus, thyromegaly - Respiratory Respiratory exam: Present: clear to auscultation bilaterally. Absent: rales, rhonchi, stridor, wheezes - Cardiovascular Cardiovascular exam: Present: regular rate and rhythm - GI/Abdominal GI/Abdominal exam: Present: hypoactive bowel sounds, tenderness (Low left quadrant tender upon gentle palpation), soft - Extremities Exam Extremities exam: Present: normal inspection, normal capillary refill, full ROM. Absent: edema - Back Exam Back exam: Present: normal inspection - Neurological Exam Neurological exam: Present: alert, oriented X3, CN II-XII intact - Psychiatric Psychiatric exam: Present: normal affect - Skin Skin exam: Present: normal color, warm, dry Results - Labs CBC & BMP: 03/30/17 09:36 03/30/17 09:36 Lab Results: I have reviewed the past 24 hour labs
[2017-03-30] MEDS ORDERED: ACETAMINOPHEN 325 MG TABLET PO PRN (12:27)
[2017-03-30] MEDS ORDERED: LORazepam 1 MG TABLET PO PRN (12:27)
[2017-03-30] MEDS ORDERED: predniSONE 20 MG TABLET PO PRN (12:27)
[2017-03-30] MEDS ORDERED: MORPHINE 2 MG/1 ML SYRINGE IV PRN (12:27)
[2017-03-30] MEDS ORDERED: LEVOFLOXACIN INJ 500 MG in PREMIX 1 EACH IV SCH ×2 (12:27→12:30)
[2017-03-30] MEDS ORDERED: ONDANSETRON 4 MG/2 ML VIAL IV PRN (12:36)
[2017-03-30] MEDS ORDERED: COLCHICINE 0.6 MG TABLET PO PRN (13:00)
[2017-03-30] MEDS ORDERED: metroNIDAZOLE INJ 500 MG in PREMIX 1 EACH IV SCH (13:00)
[2017-03-30] MEDS: SODIUM CHLORIDE 0.9% 1,000 ML IV SCH ×2 (13:14→23:47)
[2017-03-30] MEDS: ALBUTEROL/IPRATROPIUM 3 ML NEB RESP TX SCH ×2 (13:34→20:15)
--- NOTE | 2017-03-30 13:39 | Gastrointestinal Consult Note ---
<Carolyn Gao - Last Filed: 03/30/17 13:32> Assessment and Plan (1) Nausea vomiting and diarrhea Status: Acute Assessment and plan: 03/30-2 month history of nausea, vomiting and diarrhea episodes without abdominal pain. No other associated symptoms. Recent inpatient stay for similar symptoms discharged home with antibiotics without improvement of symptoms. History of cholecystectomy. Prior endoscopy records noted as below. Clear liquid diet. Check stool studies. Plan an addendum to follow Dr. Brewster. Current Visit: Yes History of Present Illness Chief complaint: Nausea and vomiting, weight loss History of present illness: Mr. Slade is a 71 year old male who was admitted to the hospital with 2 month episode of nausea, vomiting and diarrhea. Patient is accompanied by his who provides historical information. Information is also obtained from chart review. Patient has a prior history of CHF, hypertension, atrial fibrillation, COPD, PE (2009 and 2015), and chronic pain. Patient has a history of cholecystectomy in the past as well. Patient states that approximately 2 months ago he had an onset of varying episodes of nausea and vomiting. He states that initially when this began there were no precipitating factors and that would come on suddenly and resolve on their own. He will go 3 days of vomiting 2 or 3 times a day and then other days not vomiting at all. He has been seen as inpatient earlier this month with the same complaints and he was found at that time to have acute renal failure and treated empirically for colitis. Patient states that since discharge his symptoms have actually seemed to worsen and he is having nausea and vomiting every day with an average of 2-3 episodes daily. He states this is not affected by activity or meals or any other known factors. He reports losing 15 pounds since onset of this 2 months ago. Denies GERD, dysphagia, epigastric or abdominal pain. Denies fever or chills. States he has had some varying episodes of diarrhea where he will have 2-3 bowel movements one day and then not have a movement for a day or 2. Denies any melena or hematochezia. Denies any coffee grounds are hematemesis. He is noted to be on Eliquis with a history of atrial fibrillation as well as his history of PEs in the past. His last dose of Eliquis was this morning. He was discharged from the hospital on 03/15 with Cipro and Flagyl as well as a one-month supply of prednisone. On admission patient had CT of abdomen pelvis without contrast with no acute findings noted however mention of diverticulosis without diverticulitis, nephrolithiasis without ureterolithiasis or hydronephrosis and moderate amount of retained stool in the colon and rectum. Creatinine is 1.5. Lipase 67. Other labs are unremarkable at this time. Last known colonoscopy was in 2009 with findings of sigmoid diverticulosis and small internal hemorrhoids. Last known EGD was also in 2009 with findings of Conner's esophagus, duodenal bulb ulcers and small hiatal hernia. Home Medications Medication Instructions Recorded Confirmed Type Simvastatin [Zocor] 10 mg PO QPM 03/13/16 03/30/17 History Vilazodone HCl [Viibryd] 40 mg PO DAILY 03/17/16 03/30/17 History Apixaban [Eliquis] 5 mg PO BID #60 tablet 03/24/16 03/30/17 Rx Carvedilol [Coreg] 25 mg PO BID 07/17/16 03/30/17 History Ubidecarenone [Co Q-10] 50 mg PO BEDTIME 03/12/17 03/30/17 History Ziprasidone HCl 60 mg PO BID W/MEALS 03/12/17 03/30/17 History Albuterol/Ipratropium Neb [Duoneb] 3 ml RESP TX RT TID #90 vial 03/15/17 Rx Colchicine 0.3 mg PO DAILY PRN 03/30/17 03/30/17 History Furosemide Tab [Lasix Tab] 20 mg PO DAILY PRN 03/30/17 03/30/17 History LORazepam [Lorazepam] 1 mg PO TID PRN 03/30/17 03/30/17 History predniSONE TAB [PredniSONE] 20 mg PO DAILY PRN 03/30/17 03/30/17 History Allergies Allergy/AdvReac Type Severity Reaction Status Date / Time No Known Allergies Allergy Unverified 03/30/17 09:40 Medical,Surgical,& Family Hx - Medical History Cardio: History of: Cardiac Dysrhythmia (afib), CHF, Hypertension Psychological: History of: Anxiety Disorders, Depression Neurology: History of: Seizures No history of: Cerebrovascular Accident HEENT: History of: Dental Problems (Upper dentures) Endocrine: History of: Dyslipidemia Rheumatology: History of;: Gout Respiratory: History of: COPD, Pulmonary Embolism (2009 and 03/2016), Pneumonia Renal: History of: Renal Failure Gastrointestinal: History of: Diverticulitis/ Diverticulosis, GERD, Pancreatitis (recurrent episodes in the past secondary to alcohol use), Ulcerative Colitis Musculoskeletal: History of: Back/Neck Problems, Herniated Disk, Musculoskeletal Problems (BACK "PROBLEMS") Other: No history of: Cancer - Surgical History Cardiac Surgeries: Sugical HX of: Cardiac Catheterization Thoracic Surgeries: Patient denies;: Organ Transplant Neurologic Surgeries: Patient denies: Neurologic Surgery HEENT Surgeries: Surgical HX of: Tonsilectomy & Adenoidectomy Abdominal Surgeries: Surgical HX of: Abdominal Surgery, Appendectomy, Cholecystectomy, Colonoscopy, EGD Orthopedic Surgeries: Surgical HX of;: Orthopedic Surgery (Carpal tunnel surgery (Bilateral)), Total Hip Replacement (left hip) - Family History Family History: Reports;: Family Cancer, Family Heart Disease (father-heart attack), Family Stroke - Social History Smoking Status: Unknown if ever smoked Frequency of Alcohol Use: None Type of Drug Use: Unknown 12 point system: reviewed and no additional remarkable complaints except as stated - Constitutional Constitutional: Present: as per HPI, weight loss - EENT Eyes: Present: as per HPI Ears: Present: as per HPI Nose, mouth and throat: Present: as per HPI - Cardiovascular Cardiovascular: Present: as per HPI - Respiratory Respiratory: Present: as per HPI - Gastrointestinal Gastrointestinal: Present: as per HPI, diarrhea, nausea, vomiting - Genitourinary Genitourinary: Present: as per HPI - Musculoskeletal Musculoskeletal: Present: as per HPI, arthralgias - Neurological Neurological: Present: as per HPI - Psychiatric Psychiatric: Present: as per HPI - Endocrine Endocrine: Present: as per HPI - Hematologic/Lymphatic Hematologic/Lymphatic: Present: as per HPI Exam - Constitutional Vitals: Period Temp Pulse Resp BP Sys/Rangel Pulse Ox Last 24 Hr 98.1 F-98.3 F 66-72 12-20 134-157/76-85 96-99 General appearance: normal weight, no acute distress - Head Head exam: Present: normal inspection, normocephalic - Eye Eye exam: Present: other (Lids and conjunctivae unremarkable). Absent: scleral icterus - ENT ENT exam: Present: normal exam, normal oropharynx - Neck Neck exam: Present: normal inspection - Respiratory Respiratory exam: Present: clear to auscultation bilaterally. Absent: rales, rhonchi, wheezes - Cardiovascular Cardiovascular exam: Present: regular rate and rhythm. Absent: diastolic murmur , JVD, systolic murmur - GI/Abdominal GI/Abdominal exam: Present: normal bowel sounds, soft. Absent: ascites, distended, mass, organomegaly, tenderness - Extremities Exam Extremities exam: Present: normal inspection, full ROM - Back Exam Back exam: Present: normal inspection - Neurological Exam Neurological exam: Present: alert, oriented X3 - Psychiatric Psychiatric exam: Present: normal affect, normal mood - Skin Skin exam: Present: normal color, warm, dry Results - Labs CBC & BMP: 03/30/17 09:36 03/30/17 09:36 Lab Results: I have reviewed the past 24 hour labs Quality Measures - VTE Contraindication to Pharmacological VTE Prophylaxis: Already on Theraputic Agent , No Prophylaxis Needed <Paramijt Brewster - Last Filed: 03/31/17 10:45> History of Present Illness History of present illness: Mr. Slade is a 71 year old male Exam - Constitutional Vitals: Period Temp Pulse Resp BP Sys/Rangel Pulse Ox Last 24 Hr 98.0 F-98.5 F 55-82 12-20 134-194/72-95 93-99 Results - Labs CBC & BMP: 03/31/17 04:50 03/31/17 04:50
[2017-03-30] MEDS: oxyCODONE/ACETAMINOPHEN 5-325 MG TABLET PO PRN (16:06)
[2017-03-30] MEDS: PROMETHAZINE 25 MG/1 ML VIAL IM PRN (16:07)
[2017-03-30] MEDS: ZIPRASIDONE 20 MG CAPSULE PO SCH ×2 (17:01→17:20)
--- NOTE | 2017-03-30 17:57 | Event Note ---
Patient seen and examined unfortunately the computer will not let me open Carolyn CORBIN's note for cosignature. This will suffice for that. Persistent nausea and vomiting over the past 2 months with 15 pound weight loss. Prior cholecystectomy is noted. Hospitalization 2 weeks ago with acute exacerbation of chronic renal insufficiency felt secondary to gastroenteritis. Empiric treatment for presumptive colitis was initiated with Flagyl and his symptoms have persisted. CT scan today without contrast shows no acute abdominal findings. Patient's complaints are that he feels like he has "raw meat" in his stomach. I see no indication to continue antibiotics at this time and will start Zofran to see if we can intervene with his nausea. He also complains of some headache over the past few days and if no findings on EGD will consider CT scan of the head for possible central source of his nausea and vomiting. Abdomen soft nondistended nontender Agree with additional history physical findings per Carolyn CORBIN in her note that the computer will not let me cosign today.
[2017-03-30] MEDS: SIMVASTATIN 10 MG TABLET PO SCH (18:11)
[2017-03-30] MEDS: CARVEDILOL 25 MG TABLET PO SCH (20:11)
[2017-03-30] MEDS: COENZYME Q10 100 MG CAPSULE PO SCH (20:11)
[2017-03-30] MEDS: APIXABAN 5 MG TABLET PO SCH (20:11)
[2017-03-31] MEDS: SODIUM CHLORIDE 0.9% 1,000 ML IV SCH ×3 (02:39→18:13)
[2017-03-31] MEDS: PROMETHAZINE 25 MG/1 ML VIAL IM PRN ×3 (02:39→22:07)
[2017-03-31 05:21] LABS: Basophils % 0.4 % (0.0-0.8); Eosinophils # 0.3 10*3/uL (0.0-0.87); Hematocrit 39.6 VOL% (42.0-52.0); Hemoglobin 13.1 GM/DL (14.0-18.0); Immature Granulocytes % 0.4 %; Immature Granulocytes Absolute 0.02 #; Lymphocytes # 1.4 10*3/uL (1.4-4.0); Lymphocytes % 27.9 % (21.2-54.2); Mean Corpuscular HGB Conc 33.1 GM/DL (32-36); Mean Corpuscular Hemoglobin 30 PG (27-34); Mean Platelet Volume 10.7 FL (9.6-12.0); Monocytes # 0.5 10*3/uL (0.11-0.8); Monocytes % 9.7 % (1.7-12.7); Neutrophils # 2.7 10*3/uL (1.4-7.4); Neutrophils % 55.6 % (38.7-73.9); Platelet Count 162 T/CUMM (130-400); Red Cell Distribution Width 13.7 % (9.3-17.3); White Blood Count 4.8 T/CUMM (4-12)
[2017-03-31 05:54] LABS: Albumin 2.8 G/DL (3.4-5.0); Bilirubin,Total 0.8 MG/DL (0.2-1.0); Magnesium 1.7 MG/DL (1.8-2.4); Osmolality,Calculated 286.6 MOS/KG (273-304); Potassium 3.3 MMOL/L (3.5-5.1); Total Protein 4.7 G/DL (6.4-8.3)
[2017-03-31] MEDS: oxyCODONE/ACETAMINOPHEN 5-325 MG TABLET PO PRN ×2 (07:17→13:26)
[2017-03-31] MEDS: ALBUTEROL/IPRATROPIUM 3 ML NEB RESP TX SCH ×3 (07:36→19:57)
--- NOTE | 2017-03-31 07:37 | EKG Report ---
Stationary ECG Study [facility] Test Date: 03/31/2017 7:38:10 AM Pat Name: AYSHA MENESES Department: Room: 285 Gender: M Mission Assessment Specialist: JUAN JOSÉ : 1945 Requested by: Aston Perez Order Number: [id number] Reading MD: MAT GREGORY Intervals [place] Rate: 52 P: 198 [place]: 196 QRS: 2 QRSD: 88 T: -4 QT: 472 QTc: 453 Interpretive Statements SINUS [id number] Electronically Signed On 03-31-17 10:05:12 CDT by MAT GREGORY [email or web address]
[2017-03-31] MEDS: CARVEDILOL 25 MG TABLET PO SCH ×2 (08:25→21:43)
[2017-03-31] MEDS: ZIPRASIDONE 20 MG CAPSULE PO SCH ×2 (08:26→17:00)
[2017-03-31] MEDS ORDERED: VILAZODONE HCL 40 MG PO SCH (09:00)
[2017-03-31] MEDS ORDERED: PANTOPRAZOLE 40 MG TABLET PO SCH (09:00)
--- NOTE | 2017-03-31 09:26 | Hospitalist Progress Note ---
Assessment and Plan (1) Atrial fibrillation Status: Acute Assessment and plan: Patient has a known history of atrial fibrillation. He is currently on Coreg and Lopressor for rate control. He is treated with Eliquis for anticoagulation purposes. We will place the patient on telemetry for continuous cardiac monitoring to monitor his rate control. Although his rate was controlled for the most part during the ED encounter, he did have episodes in which his rate was markedly elevated. We will consult cardiology to evaluate and assist during the clinical encounter. 03/06 Current Visit: Yes (2) Diverticulosis Status: Acute Assessment and plan: We will gently rehydrate, promote bowel rest, pain control, PPIs, and consult GI to evaluate and assist. Current Visit: Yes (3) Intractable nausea and vomiting Status: Acute Assessment and plan: We will gently rehydrate, promote bowel rest, antiemetics, PPIs, and consult gastroenterology to evaluate and treat. Current Visit: Yes (4) Hypomagnesemia Status: Acute Assessment and plan: Magnesium was noted at 1.7. We will start the magnesium replacement protocol and correct the deficit. We will recheck mag level in a.m. Current Visit: No Exam - Constitutional Vitals: Period Temp Pulse Resp BP Sys/Rangel Pulse Ox Last 24 Hr 98.0 F-98.5 F 58-82 12-20 134-194/72-95 93-99 Results - Labs CBC & BMP: 03/31/17 04:50 03/31/17 04:50 Lab Results: I have reviewed the past 24 hour labs Quality Measures - VTE Contraindication to Pharmacological VTE Prophylaxis: Already on Theraputic Agent , No Prophylaxis Needed
--- NOTE | 2017-03-31 09:47 | Hospitalist Progress Note ---
<Griselda Luo - Last Filed: 03/31/17 09:43> Assessment and Plan - Time spent with patient Time spent with patient: Less than 30 minutes (1) History of colitis Status: Acute Assessment and plan: patient is scheduled for upper Gi scope for this a.m. around [address] Brewster for unresolved nausea. will wait on results from scope. patient denies any vomiting last night but had a couple of episodes of nauseu. However was able to eat and tolerated jello; popsicle; and couple of sips of broth. Current Visit: Yes (2) Intractable nausea and vomiting Status: Acute Assessment and plan: nausea appears to be better controlled at this time; currently on PRN zofran and phenergan; denies any vomiting Current Visit: Yes (3) Magnesium deficiency Status: Acute Assessment and plan: noted this am mag 1.7; will replace per protocol; as well as K is 3.3 will plan to replace per protocol. Current Visit: Yes Hospitalist: Subjective Interval history: 03/31/17 71 y/o white male: history of N/V/D patient seen this a.m. sitting up in bed without acute distress. c/o left foot pain related to chronic gout pain ; denies vomiting during the night; had a couple episodes of nausea but tolerated and held down a popsicle; jello and a couple of sips of broth last night per patients ; complaint of headache. chart reviewed; noted the magnesium is 1.7; same as yesterday; He is suppose to have upper scope this a.m. by Dr Brewster for further evaluation. Exam - Constitutional Vitals: Period Temp Pulse Resp BP Sys/Rangel Pulse Ox Last 24 Hr 98.0 F-98.5 F 58-82 12-20 134-194/72-95 93-99 General appearance: no acute distress, over weight Exam: awake alert and answering questions appropriately - Head Head exam: Present: normal inspection - Eye Eye exam: Present: EOMI Pupils: Present: KODAK - Neck Neck exam: Present: normal inspection - Respiratory Respiratory exam: Present: clear to auscultation bilaterally - Cardiovascular Cardiovascular exam: Present: bradycardia - GI/Abdominal GI/Abdominal exam: Present: normal bowel sounds, soft, other (patient denies BM but has very little intact at this time; will continue to monitor). Absent: guarding, tenderness, rebound - Extremities Exam Extremities exam: Absent: edema - Neurological Exam Neurological exam: Present: alert, oriented X3 - Psychiatric Psychiatric exam: Present: normal affect - Skin Skin exam: Present: normal color, warm, dry Results - Labs CBC & BMP: 03/31/17 04:50 03/31/17 04:50 Lab Results: I have reviewed the past 24 hour labs Labs: noted magniesieum to be 1.7 will replace per protocol noted K 3.3 will need to replace per protocol BNP 163 - Diagnostic Findings Procedure: CT Abdomen and Pelvis: report reviewed by me (03/30/17 - no acute process; diverticulosis without diverticulitis; moderate amount of stool in rectum and distal colon; ), CT: report reviewed by me (03/30/17 - head CT No acute hemorrhage infarction or mass; cerebral cortical atrophy) Quality Measures - VTE Contraindication to Pharmacological VTE Prophylaxis: Already on Theraputic Agent , No Prophylaxis Needed <Aston Perez - Last Filed: 03/31/17 18:56> Exam - Constitutional Vitals: Period Temp Pulse Resp BP Sys/Rangel Pulse Ox Last 24 Hr 97.7 F-98.5 F 54-68 13-20 104-194/57-073 93-99 Results - Labs CBC & BMP: 03/31/17 04:50 03/31/17 04:50
--- NOTE | 2017-03-31 10:46 | History and Physical Update ---
History and Physical Update - Physical Exam Mental Status: alert and oriented Heart: regular rate and rhythm Lung: clear to auscultation Abdomen: within normal limits Vitals: within normal limits
--- NOTE | 2017-03-31 10:49 | Operative Note ---
Date of procedure: 03/31/17 Pre-op diagnosis: Persistent nausea and vomiting Procedure: EGD 71-year-old gentleman with persistent nausea and vomiting since of epigastric burning now for upper endoscopy to further evaluate. Informed symptoms obtained the patient He was sedated with MAC anesthesia per anesthesia protocol. Patient placed in left lateral decubitus position the Olympus flexible video upper endoscope was inserted oral cavity under direct vision the esophagus intubated. Findings: Esophagus-normal proximal mid esophageal mucosa in the distal esophagus there is a moderate hiatal hernia with erosive esophagitis no stricture is seen no Conner's was seen no biopsies are taken due to anticoagulants. Stomach-normal insufflation multiple small gastric polyps are seen not biopsied secondary to ongoing anticoagulation. No ulcer seen to direct retroflexed views of the body fundus cardia the stomach. Pylorus-normal Duodenum-normal for the bulb duodenum to the third portion of duodenum. The procedure was terminated placed our procedure well his discharge recovery in good condition. Postop diagnosis 1. Gastroesophageal reflux disease with esophagitis-continue IV PPI treatment. Unfortunately this may be caused by his nausea vomiting or could be the potential cause. We will go ahead and get a CT scan of the head for his persistent symptoms and headache. 2. Gastric polyps-unlikely to be of significant clinical significance. Anesthesia: MAC Surgeon / Physician: Paramjit Brewster Estimated blood loss: none Specimens: none sent Condition: stable Disposition: post procedure unit Results - Labs CBC & BMP: 03/31/17 04:50 03/31/17 04:50 Discharge Plan - Discharge Medications No Action Simvastatin [Zocor] 10 mg PO QPM Vilazodone HCl [Viibryd] 40 mg PO DAILY Apixaban [Eliquis] 5 mg PO BID #60 tablet Carvedilol [Coreg] 25 mg PO BID Albuterol/Ipratropium Neb [Duoneb] 3 ml RESP TX RT TID #90 vial Colchicine 0.3 mg PO DAILY PRN PRN Reason: GOUT ATTACK LORazepam [Lorazepam] 1 mg PO TID PRN PRN Reason: Anxiety Ubidecarenone [Co Q-10] 50 mg PO BEDTIME Ziprasidone HCl 60 mg PO BID W/MEALS predniSONE TAB [PredniSONE] 20 mg PO DAILY PRN PRN Reason: GOUT ATTACK Furosemide Tab [Lasix Tab] 20 mg PO DAILY PRN PRN Reason: FLUID - Follow Up or Referral - Forms/Instructions
--- NOTE | 2017-03-31 10:57 | Anesthesia Post-Op ---
Anesthesia Post OP - Post Ansesthetic Evaluation Patient seen in post op: Yes Resp: within normal limits CV: within normal limits Mental: within normal limits Temp: within normal limits Thiq-Rk-Egufvyloe: within normal limits Nausea and Vomiting: within normal limits Pain: within normal limits
[2017-03-31] MEDS ORDERED: LIDOCAINE 1% 5 ML VIAL ONE (11:00)
[2017-03-31] MEDS ORDERED: PROPOFOL 200 MG/20 ML VIAL IV ONE (11:00)
--- NOTE | 2017-03-31 11:56 | CT Report ---
Exam: CT scan of the brain with and without contrast Date 03/31/2017 Indication: Headache with persistent nausea and vomiting Comparison: 03/30/2017 Patient's classification: Inpatient telemetry Total DLP 1884.8 Technical: Images were obtained from the skull base to vertex with and without intravenous contrast 80 cc Omnipaque. Dose reduction was performed with decreasing kv and mA and automated exposure Findings: The ventricles are slightly prominent. Small vessel changes are present in the periventricular subcortical white matter regions. No obvious hemorrhage present. The brainstem is intact the cerebellum is unremarkable. Following contrast administration no contrast enhancing lesions are present. Anterior cerebral middle cerebral posterior cerebral and vertebral and internal carotid arteries are demonstrated. No mass effect present. The calvarium is unremarkable. Paranasal sinuses globes and sella are intact. 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 Impression: 1. Small vessel ischemic change and subcortical atrophy without acute hemorrhage infarction or mass effect 2. Previous cervical fusion with titanium plate and intervertebral disc body fiberglass luggage molder PROCEDURE INTERPRETED AT [facility] DEPARTMENT OF RADIOLOGY Final Report Signed by: Dr. Siva Hendrix
[2017-03-31] MEDS: PANTOPRAZOLE 40 MG VIAL IV SCH ×2 (12:57→21:43)
[2017-03-31] MEDS: APIXABAN 5 MG TABLET PO SCH ×2 (12:57→21:43)
[2017-03-31] MEDS ORDERED: FUROSEMIDE 40 MG/4 ML VIAL IV ONE (14:15)
[2017-03-31] MEDS: SIMVASTATIN 10 MG TABLET PO SCH (18:13)
[2017-03-31] MEDS: COENZYME Q10 100 MG CAPSULE PO SCH (21:43)
[2017-04-01 04:06] LABS: Basophils % 0.8 % (0.0-0.8); Eosinophils # 0.4 10*3/uL (0.0-0.87); Eosinophils % 7.2 % (0.00-10.9); Hematocrit 40.4 VOL% (42.0-52.0); Hemoglobin 13.6 GM/DL (14.0-18.0); Immature Granulocytes % 0.2 %; Immature Granulocytes Absolute 0.01 #; Lymphocytes # 1.2 10*3/uL (1.4-4.0); Lymphocytes % 25.1 % (21.2-54.2); Mean Corpuscular HGB Conc 33.7 GM/DL (32-36); Mean Corpuscular Hemoglobin 30 PG (27-34); Mean Corpuscular Volume 90.4 FL (87-102); Monocytes # 0.5 10*3/uL (0.11-0.8); Monocytes % 9.3 % (1.7-12.7); Neutrophils # 2.8 10*3/uL (1.4-7.4); Neutrophils % 57.4 % (38.7-73.9); Platelet Count 164 T/CUMM (130-400); Red Blood Count 4.47 MC/CUMM (3.8-5.5); Red Cell Distribution Width 13.8 % (9.3-17.3); White Blood Count 4.9 T/CUMM (4-12)
[2017-04-01] MEDS: SODIUM CHLORIDE 0.9% 1,000 ML IV SCH (04:25)
[2017-04-01 04:34] LABS: Calcium 8.2 MG/DL (8.5-10.1); Magnesium 1.6 MG/DL (1.8-2.4); Osmolality,Calculated 288.6 MOS/KG (273-304); Potassium 3.3 MMOL/L (3.5-5.1)
[2017-04-01] MEDS: PROMETHAZINE 25 MG/1 ML VIAL IM PRN (07:54)
[2017-04-01] MEDS: APIXABAN 5 MG TABLET PO SCH (08:18)
[2017-04-01] MEDS: CARVEDILOL 25 MG TABLET PO SCH (08:18)
[2017-04-01] MEDS: PANTOPRAZOLE 40 MG VIAL IV SCH (08:18)
[2017-04-01] MEDS: ZIPRASIDONE 20 MG CAPSULE PO SCH (08:18)
[2017-04-01] MEDS: ALBUTEROL/IPRATROPIUM 3 ML NEB RESP TX SCH (08:26)
--- NOTE | 2017-04-01 08:36 | Discharge Summary ---
Hospital Course - Hospital Course Hospital Course: The patient was admitted to the hospital with primary complaint of nausea with headache and joint pain. Some of the patient's symptoms appear to be due to narcotic withdrawal. The patient improved with IM Phenergan and oral Percocet. The patient had consultation with Dr. Brewster. Esophagogastroduodenoscopy was performed on the second hospital day. The patient was seen to have gastritis and some reflux characteristics. The patient will be discharged home with increased proton pump inhibitor. He will follow-up with his usual primary care physician. The patient did not have evidence of colitis on clinical examination despite the CT scan findings. The patient was not discharged on antibiotics. On the date of discharge, chest is clear and abdomen is soft. 34 minutes were required for discharge [id number] encounter and documentation. - Time spent with patient Time with patient DS: Greater than 30 minutes Diagnosis - Discharge Diagnosis (1) Intractable nausea and vomiting Status: Acute Discharge Plan - Discharge Data Disposition: Home Health Service Condition at Discharge: Stable Discharge Diet: heart healthy Activity: resume usual activities as tolerated - Discharge Medications New oxyCODONE/ACETAMINOPHEN 5-325 [Percocet 5-325] 1 tablet PO BID #20 tablet Continue Simvastatin [Zocor] 10 mg PO QPM Vilazodone HCl [Viibryd] 40 mg PO DAILY Apixaban [Eliquis] 5 mg PO BID #60 tablet Carvedilol [Coreg] 25 mg PO BID Albuterol/Ipratropium Neb [Duoneb] 3 ml RESP TX RT TID #90 vial Colchicine 0.3 mg PO DAILY PRN PRN Reason: GOUT ATTACK LORazepam [Lorazepam] 1 mg PO TID PRN PRN Reason: Anxiety Ubidecarenone [Co Q-10] 50 mg PO BEDTIME Ziprasidone HCl 60 mg PO BID W/MEALS predniSONE TAB [PredniSONE] 20 mg PO DAILY PRN PRN Reason: GOUT ATTACK Furosemide Tab [Lasix Tab] 20 mg PO DAILY PRN PRN Reason: FLUID - Follow Up or Referral Follow Up: Jacques Guerrero M.D. [Physician] - 2 Weeks - Forms/Instructions Exam - Constitutional Vitals: Period Temp Pulse Resp BP Sys/Rangel Pulse Ox Last 24 Hr 97.7 F-98.4 F 54-72 13-20 104-163/57-073 90-99 Discharge Results Procedures and tests throughout hospitalization: Pending Orders 03/31/17 13:42 Occult Blood, Stool Routine Stool Culture Routine Labs on day of discharge: Labs from last 24 hours 04/01/17 04/01/17 03:34 03:34 WBC 4.9 RBC 4.47 Hgb 13.6 L Hct 40.4 L MCV 90.4 MCH 30 MCHC 33.7 RDW 13.8 Plt Count 164 MPV 11.0 Neut % (Auto) 57.4 Lymph % (Auto) 25.1 [place] % (Auto) 9.3 Eos % (Auto) 7.2 Baso % (Auto) 0.8 Neut # (Auto) 2.8 Lymph # (Auto) 1.2 L [place] # (Auto) 0.5 Eos # (Auto) 0.4 Baso # (Auto) 0.0 Immature Gran % 0.2 Nucleated RBC % 0.0 Immature Gran # 0.01 Nucleated RBCs # 0.00 Sodium 146 H Potassium 3.3 L Chloride 113 H Carbon Dioxide 26 Anion Gap 10.3 BUN 9 Creatinine 1.20 GFR Calculation 74 BUN/Creatinine Ratio 7.00 Glucose 100 Calculated Osmolality 288.6 Calcium 8.2 L Magnesium 1.6 L Preliminary micro results at discharge 03/31/17 13:42 Stool Culture - Preliminary Stool No enteric pathogens at 24 hrs DS: Provider Date of admission: 03/30/17 10:58 Primary care physician: Chica Swain M.D. Attending physician on admission: Aston Perez MD Consults: 03/30/17 12:27 Consult to Physician [CONS] Routine Comment: abdominal pain Consulting Provider: Paramjit Brewster Consult to Specialist Group: Gastroenterology Person Notified: [email or web address] Date Notified: 03/30/17 Time Notified: 14:05 Discharging clinician: Aston Perez MD
--- NOTE | 2017-04-01 10:11 | Gastrointestinal Progress Note ---
<Carolyn Gao - Last Filed: 04/01/17 10:09> Assessment and Plan (1) Nausea vomiting and diarrhea Status: Acute Assessment and plan: 04/01-nausea improved at present time. Appetite increasing. EGD findings noted. Patient for discharge home today. Keep April 06 follow-up appointment unless symptoms have improved. Take daily PPI. Plan an addendum follow Dr. Brewster. 03/30-2 month history of nausea, vomiting and diarrhea episodes without abdominal pain. No other associated symptoms. Recent inpatient stay for similar symptoms discharged home with antibiotics without improvement of symptoms. History of cholecystectomy. Prior endoscopy records noted as below. Clear liquid diet. Check stool studies. Plan an addendum to follow Dr. Brewster. Current Visit: Yes Gastroenterology - PN: Subj Interval history: CC: Nausea vomiting Patient is seen awake and alert with at bedside. States he had an uneventful night. He states that this time that his nausea and vomiting is improved and his appetite is improving at this time as well. EGD findings on yesterday with evidence of GERD and esophagitis. Head CT done yesterday showed no acute findings. Abdomen is soft, nontender. Patient is noted to be discharged today following being seen by Dr. Brewster prior to. He has an appointment for April 06 and instructed patient to keep this appointment however at that time if his symptoms are improved he may call and cancel. Also instructed that he will need to maintain on his Protonix at time of discharge. ROS: Denies shortness of breath or chest pain. Exam (Progress Note) - Constitutional Vitals: Period Temp Pulse Resp BP Sys/Rangel Pulse Ox Last 24 Hr 97.7 F-98.4 F 54-72 13-20 104-163/57-073 90-99 General appearance: normal weight, no acute distress - Head Head exam: Present: normal inspection, normocephalic - Eye Eye exam: Present: other (Lids and conjunctive are unremarkable). Absent: scleral icterus - ENT ENT exam: Present: normal exam, normal oropharynx - Neck Neck exam: Present: normal inspection - Respiratory Respiratory exam: Present: clear to auscultation bilaterally. Absent: rales, rhonchi, wheezes - Cardiovascular Cardiovascular exam: Present: regular rate and rhythm. Absent: diastolic murmur , JVD, systolic murmur - GI/Abdominal GI/Abdominal exam: Present: normal bowel sounds, soft. Absent: ascites, distended, mass, organomegaly, tenderness - Extremities Exam Extremities exam: Present: normal inspection, full ROM - Back Exam Back exam: Present: normal inspection - Neurological Exam Neurological exam: Present: alert, oriented X3 - Psychiatric Psychiatric exam: Present: normal affect, normal mood - Skin Skin exam: Present: normal color, warm, dry Results - Labs CBC & BMP: 04/01/17 03:34 04/01/17 03:34 Lab Results: I have reviewed the past 24 hour labs Specialty Discharge - Follow Up or Referrals Follow up with: Jacques Guerrero M.D. [Physician] - 04/16/17 2:15 pm <Paramjit Brewster - Last Filed: 04/01/17 10:17> Exam (Progress Note) - Constitutional Vitals: Period Temp Pulse Resp BP Sys/Rangel Pulse Ox Last 24 Hr 97.7 F-98.4 F 54-72 13-20 104-162/57-073 90-99 Results - Labs CBC & BMP: 04/01/17 03:34 04/01/17 03:34
[2017-04-01 11:57] VITALS: BP 147/72
== END 2017-04-01 13:27 | disposition home health service (06) | DRG 392 ==
LOC: EDUNIT# → EDBD → N.ED 09:35 → N.EDINP 10:58 → SUATTDRO 10:58 → N.TELEN 11:39
PROVIDERS: ADMIT Internal Medicine; ATTEND Internal Medicine

== ENCOUNTER 2017-12-08 13:26 | Inpatient (IN) ==
[2017-12-08] MEDS ORDERED: ONDANSETRON 4 MG/2 ML VIAL IV STA ×2 (14:01→15:19)
[2017-12-08 14:08] LABS: Basophils % 0.3 % (0.0-0.8); Eosinophils # 0.1 10*3/uL (0.0-0.87); Hematocrit 38.7 VOL% (42.0-52.0); Hemoglobin 13.6 GM/DL (14.0-18.0); Immature Granulocytes Absolute 0.09 #; Lymphocytes # 1.5 10*3/uL (1.4-4.0); Lymphocytes % 15.8 % (21.2-54.2); Mean Corpuscular HGB Conc 35.1 GM/DL (32-36); Mean Corpuscular Hemoglobin 31 PG (27-34); Mean Platelet Volume 9.9 FL (9.6-12.0); Monocytes % 10.2 % (1.7-12.7); Neutrophils # 6.7 10*3/uL (1.4-7.4); Neutrophils % 71.7 % (38.7-73.9); Platelet Count 176 T/CUMM (130-400); Red Blood Count 4.35 MC/CUMM (3.8-5.5); Red Cell Distribution Width 14.2 % (9.3-17.3); White Blood Count 9.4 T/CUMM (4-12)
[2017-12-08] MEDS ORDERED: PROMETHAZINE 25 MG/1 ML VIAL IM STA (14:09)
[2017-12-08] MEDS ORDERED: PROMETHAZINE 25 MG/1 ML VIAL ONE (14:10)
[2017-12-08 14:16] LABS: PT Patient Result 10.9 SECS; Partial Thromboplastin Time 30.3 SECS (0-40)
[2017-12-08 14:42] LABS: Alanine Aminotransferase 15 U/L (16-61); Albumin 3.8 G/DL (3.4-5.0); Alkaline Phosphatase 53 U/L (45-117); Aspartate Amino Transferase 15 U/L (0-37); Blood Urea Nitrogen 31 MG/DL (7-18); Calcium 8.8 MG/DL (8.5-10.1); Glucose 97 MG/DL (74-106); Osmolality,Calculated 261.2 MOS/KG (273-304); Potassium 4.7 MMOL/L (3.5-5.1); Sodium 127 MMOL/L (136-145); Total Protein 6.3 G/DL (6.4-8.3); Troponin I Only < 0.015 NG/ML (0.00-0.045)
[2017-12-08] MEDS ORDERED: SODIUM CHLORIDE 0.9% 1,000 ML IV STA (15:19)
[2017-12-08] MEDS ORDERED: ONDANSETRON 4 MG/2 ML VIAL ONE (15:21)
[2017-12-08] MEDS ORDERED: BENZONATATE 100 MG CAPSULE PO STA (16:19)
[2017-12-08] MEDS ORDERED: ALBUTEROL 2.5 MG/3 ML NEB RESP TX PRN ×2 (16:19)
[2017-12-08] MEDS ORDERED: cloNIDine 0.1 MG TABLET PO PRN (16:19)
[2017-12-08] MEDS ORDERED: methylPREDNISolone SOD SUC 125 MG/2 ML VIAL IV STA (16:21)
[2017-12-08] MEDS ORDERED: BENZONATATE 100 MG CAPSULE PO ONE ×2 (16:40→16:43)
[2017-12-08] MEDS ORDERED: methylPREDNISolone SOD SUC 125 MG/2 ML VIAL ONE (16:40)
[2017-12-08] MEDS: PANTOPRAZOLE 40 MG TABLET PO SCH (18:06)
[2017-12-08] MEDS: SODIUM CHLORIDE 0.9% 1,000 ML IV SCH ×2 (18:06→22:26)
[2017-12-08] MEDS ORDERED: NITROGLYCERIN SL 0.4 MG TABLET SL ONE (19:20)
[2017-12-08] MEDS ORDERED: MORPHINE 2 MG/1 ML SYRINGE ONE (19:21)
[2017-12-08] MEDS ORDERED: ASPIRIN CHEW 81 MG TABLET PO ONE (19:22)
[2017-12-08] MEDS ORDERED: SODIUM CHLORIDE 0.9% 500 ML IV ONE (19:31)
[2017-12-08] MEDS ORDERED: LORazepam 2 MG/1 ML VIAL IV ONE (19:38)
[2017-12-08] MEDS ORDERED: MORPHINE 2 MG/1 ML SYRINGE IV PRN (19:38)
[2017-12-08 19:51] LABS: Basophils % 0.1 % (0.0-0.8); Eosinophils % 0.3 % (0.00-10.9); Hematocrit 37.3 VOL% (42.0-52.0); Hemoglobin 13.2 GM/DL (14.0-18.0); Immature Granulocytes % 0.7 %; Immature Granulocytes Absolute 0.07 #; Lymphocytes # 0.5 10*3/uL (1.4-4.0); Lymphocytes % 5.4 % (21.2-54.2); Mean Corpuscular HGB Conc 35.4 GM/DL (32-36); Mean Corpuscular Hemoglobin 31 PG (27-34); Mean Platelet Volume 10.3 FL (9.6-12.0); Monocytes # 0.4 10*3/uL (0.11-0.8); Monocytes % 3.9 % (1.7-12.7); Neutrophils # 8.9 10*3/uL (1.4-7.4); Neutrophils % 89.6 % (38.7-73.9); Platelet Count 167 T/CUMM (130-400); Red Blood Count 4.24 MC/CUMM (3.8-5.5); Red Cell Distribution Width 14.4 % (9.3-17.3); White Blood Count 9.9 T/CUMM (4-12)
[2017-12-08] MEDS: CARVEDILOL 12.5 MG TABLET PO SCH (20:04)
[2017-12-08] MEDS: SIMVASTATIN 10 MG TABLET PO SCH (20:05)
[2017-12-08] MEDS: BENZONATATE 100 MG CAPSULE PO SCH (20:05)
[2017-12-08] MEDS: APIXABAN 5 MG TABLET PO SCH (20:05)
[2017-12-08 20:12] LABS: Calcium 8.1 MG/DL (8.5-10.1); Osmolality,Calculated 264.1 MOS/KG (273-304); Potassium 4.3 MMOL/L (3.5-5.1)
[2017-12-08] MEDS: clonazePAM 0.5 MG TABLET PO PRN (20:16)
[2017-12-08] MEDS ORDERED: traZODone 50 MG TABLET PO SCH (21:00)
[2017-12-09 01:59] LABS: Basophils % 0.2 % (0.0-0.8); Hemoglobin 12.1 GM/DL (14.0-18.0); Immature Granulocytes Absolute 0.05 #; Lymphocytes # 0.3 10*3/uL (1.4-4.0); Lymphocytes % 5.6 % (21.2-54.2); Mean Corpuscular HGB Conc 33.6 GM/DL (32-36); Mean Corpuscular Hemoglobin 30 PG (27-34); Mean Corpuscular Volume 90.2 FL (87-102); Mean Platelet Volume 10.3 FL (9.6-12.0); Monocytes # 0.1 10*3/uL (0.11-0.8); Neutrophils # 4.6 10*3/uL (1.4-7.4); Neutrophils % 92.2 % (38.7-73.9); Platelet Count 155 T/CUMM (130-400); Red Blood Count 3.99 MC/CUMM (3.8-5.5); Red Cell Distribution Width 14.6 % (9.3-17.3)
[2017-12-09 02:22] LABS: Calcium 7.8 MG/DL (8.5-10.1); Osmolality,Calculated 275.7 MOS/KG (273-304)
[2017-12-09 03:52] LABS: Lymphocytes 1 % (20-55); Platelet Estimate Adequate; Segmented Neutrophils 97 % (50-85); Total Cells Counted 100
[2017-12-09] MEDS: ONDANSETRON 4 MG/2 ML VIAL IV PRN ×2 (05:56→10:16)
[2017-12-09] MEDS: SODIUM CHLORIDE 0.9% 1,000 ML IV SCH ×3 (05:56→22:52)
[2017-12-09] MEDS: predniSONE 20 MG TABLET PO SCH (08:10)
[2017-12-09] MEDS: PANTOPRAZOLE 40 MG TABLET PO SCH ×2 (08:10→21:51)
[2017-12-09] MEDS: CARVEDILOL 12.5 MG TABLET PO SCH (08:11)
[2017-12-09] MEDS: APIXABAN 5 MG TABLET PO SCH (08:11)
[2017-12-09] MEDS: clonazePAM 0.5 MG TABLET PO PRN (08:11)
[2017-12-09] MEDS: BENZONATATE 100 MG CAPSULE PO SCH ×3 (08:11→21:51)
[2017-12-09] MEDS ORDERED: MONTELUKAST 10 MG TABLET PO SCH (09:00)
[2017-12-09] MEDS ORDERED: PROMETHAZINE INJ 12.5 MG in SODIUM CHLORIDE 0.9% 50 ML IV PRN (09:30)
[2017-12-09] MEDS ORDERED: diphenhydrAMINE CAP 25 MG CAPSULE PO ONE (10:55)
[2017-12-09] MEDS ORDERED: MAGNESIUM SULF RIDER 2 GM in PREMIX 1 EACH IV PRN ×2 (10:55→16:34)
[2017-12-09] MEDS ORDERED: POTASSIUM CHLORIDE RIDER 10 MEQ in PREMIX 1 EACH IV PRN ×2 (10:55→16:34)
[2017-12-09] MEDS ORDERED: DIAZEPAM 5 MG TABLET PO ONE (10:55)
[2017-12-09] MEDS ORDERED: ASPIRIN 325 MG TABLET PO ONE (10:55)
[2017-12-09] MEDS ORDERED: HYOSCYAMINE 0.125 MG TABLET PO ONE (10:57)
[2017-12-09] MEDS ORDERED: ENOXAPARIN 40 MG/0.4 ML SYRINGE SUBCUT SCH (11:00)
[2017-12-09] MEDS ORDERED: ACETAMINOPHEN 325 MG TABLET PO ONE (11:11)
[2017-12-09] MEDS ORDERED: ALBUTEROL/IPRATROPIUM 3 ML NEB RESP TX PRN (11:29)
[2017-12-09] MEDS: ALBUTEROL/IPRATROPIUM 3 ML NEB RESP TX SCH ×2 (13:20→19:42)
[2017-12-09] MEDS: GABAPENTIN 100 MG CAPSULE PO SCH ×2 (16:42→21:50)
[2017-12-09] MEDS ORDERED: clonazePAM 0.5 MG TABLET PO PRN (18:00)
[2017-12-09] MEDS ORDERED: ENOXAPARIN 40 MG/0.4 ML SYRINGE SUBCUT ONE (21:00)
[2017-12-09] MEDS ORDERED: CARVEDILOL 25 MG TABLET PO SCH (21:00)
[2017-12-09] MEDS: SIMVASTATIN 10 MG TABLET PO SCH (21:51)
[2017-12-09] MEDS: ACETAMINOPHEN 325 MG TABLET PO SCH (21:51)
[2017-12-09] MEDS: HYOSCYAMINE 0.125 MG TABLET PO SCH (21:51)
[2017-12-09] MEDS: TRAZODONE 100 MG TABLET PO SCH (22:49)
[2017-12-10] MEDS: ALBUTEROL/IPRATROPIUM 3 ML NEB RESP TX SCH ×4 (00:33→19:37)
[2017-12-10 05:20] LABS: Basophils % 0.1 % (0.0-0.8); Eosinophils % 0.4 % (0.00-10.9); Hematocrit 34.1 VOL% (42.0-52.0); Hemoglobin 11.8 GM/DL (14.0-18.0); Immature Granulocytes % 0.8 %; Immature Granulocytes Absolute 0.09 #; Lymphocytes % 8.7 % (21.2-54.2); Mean Corpuscular HGB Conc 34.6 GM/DL (32-36); Mean Corpuscular Hemoglobin 32 PG (27-34); Mean Corpuscular Volume 91.2 FL (87-102); Mean Platelet Volume 10.3 FL (9.6-12.0); Monocytes # 0.9 10*3/uL (0.11-0.8); Monocytes % 8.4 % (1.7-12.7); Neutrophils % 81.6 % (38.7-73.9); Platelet Count 141 T/CUMM (130-400); Red Blood Count 3.74 MC/CUMM (3.8-5.5); Red Cell Distribution Width 15.6 % (9.3-17.3); White Blood Count 11.1 T/CUMM (4-12)
[2017-12-10 05:55] LABS: Calcium 7.9 MG/DL (8.5-10.1); Osmolality,Calculated 288.3 MOS/KG (273-304); Potassium 4.7 MMOL/L (3.5-5.1)
[2017-12-10] MEDS: ONDANSETRON 4 MG/2 ML VIAL IV PRN (06:26)
[2017-12-10 06:52] LABS: Risk Ratio 2.24; VLDL CHOLESTEROL 14.2 MG/DL
[2017-12-10] MEDS: SODIUM CHLORIDE 0.9% 1,000 ML IV SCH ×2 (08:29→11:36)
[2017-12-10] MEDS ORDERED: ASPIRIN 325 MG TABLET PO ONE (08:40)
[2017-12-10] MEDS: METOPROLOL SUCCINATE XL 100 MG TABLET PO SCH (08:55)
[2017-12-10] MEDS: ASPIRIN EC 81 MG TABLET PO SCH (08:58)
[2017-12-10] MEDS ORDERED: DIAZEPAM 5 MG TABLET PO ONE (09:00)
[2017-12-10] MEDS ORDERED: diphenhydrAMINE CAP 25 MG CAPSULE PO ONE (09:00)
[2017-12-10] MEDS ORDERED: ERGOCALCIFEROL 50,000 UNIT CAPSULE PO SCH (09:00)
[2017-12-10] MEDS ORDERED: LIDOCAINE 1%/EPI INJ 20 ML VIAL ONE (09:02)
[2017-12-10] MEDS ORDERED: HEPARIN/NACL 0.9% 2 UNITS/ML 2,000 ML IV ONE (09:02)
[2017-12-10] MEDS ORDERED: LIDOCAINE 1% 20 ML VIAL ONE (09:08)
[2017-12-10] MEDS ORDERED: MEPERIDINE 25 MG/1 ML VIAL ONE (09:10)
[2017-12-10] MEDS ORDERED: MIDAZOLAM 2 MG/2 ML VIAL ONE (09:12)
[2017-12-10] MEDS: HYOSCYAMINE 0.125 MG TABLET PO SCH ×2 (11:36→21:24)
[2017-12-10] MEDS: BENZONATATE 100 MG CAPSULE PO SCH ×3 (11:36→21:24)
[2017-12-10] MEDS: GABAPENTIN 100 MG CAPSULE PO SCH ×3 (11:36→21:24)
[2017-12-10] MEDS: MONTELUKAST 10 MG TABLET PO SCH (11:36)
[2017-12-10] MEDS: PANTOPRAZOLE 40 MG TABLET PO SCH ×2 (11:36→21:24)
[2017-12-10] MEDS: predniSONE 20 MG TABLET PO SCH (11:36)
[2017-12-10] MEDS: TRAZODONE 100 MG TABLET PO SCH ×2 (11:36→21:25)
[2017-12-10] MEDS: ACETAMINOPHEN 325 MG TABLET PO SCH ×2 (11:37→21:24)
[2017-12-10] MEDS ORDERED: MAGNESIUM CITRATE 300 ML BOTTLE PO ONE (20:55)
[2017-12-10] MEDS: GLYCOPYRROLATE 1 MG TABLET PO SCH (21:24)
[2017-12-10] MEDS: SIMVASTATIN 10 MG TABLET PO SCH (21:24)
[2017-12-11] MEDS: ALBUTEROL/IPRATROPIUM 3 ML NEB RESP TX SCH ×2 (01:29→07:49)
[2017-12-11 06:42] LABS: Basophils % 0.3 % (0.0-0.8); Eosinophils # 0.3 10*3/uL (0.0-0.87); Eosinophils % 3.2 % (0.00-10.9); Hematocrit 37.2 VOL% (42.0-52.0); Hemoglobin 12.3 GM/DL (14.0-18.0); Immature Granulocytes % 0.6 %; Immature Granulocytes Absolute 0.05 #; Lymphocytes # 1.6 10*3/uL (1.4-4.0); Lymphocytes % 18.7 % (21.2-54.2); Mean Corpuscular HGB Conc 33.1 GM/DL (32-36); Mean Corpuscular Hemoglobin 31 PG (27-34); Mean Corpuscular Volume 94.2 FL (87-102); Mean Platelet Volume 10.2 FL (9.6-12.0); Monocytes # 0.7 10*3/uL (0.11-0.8); Monocytes % 7.9 % (1.7-12.7); Neutrophils % 69.3 % (38.7-73.9); Platelet Count 138 T/CUMM (130-400); Red Blood Count 3.95 MC/CUMM (3.8-5.5); Red Cell Distribution Width 16.2 % (9.3-17.3); White Blood Count 8.7 T/CUMM (4-12)
[2017-12-11 07:44] LABS: Calcium 8.1 MG/DL (8.5-10.1); Potassium 4.8 MMOL/L (3.5-5.1)
[2017-12-11] MEDS: GABAPENTIN 100 MG CAPSULE PO SCH (08:35)
[2017-12-11] MEDS: ASPIRIN EC 81 MG TABLET PO SCH (08:36)
[2017-12-11] MEDS: MONTELUKAST 10 MG TABLET PO SCH (08:36)
[2017-12-11] MEDS: BENZONATATE 100 MG CAPSULE PO SCH (08:36)
[2017-12-11] MEDS: HYOSCYAMINE 0.125 MG TABLET PO SCH (08:36)
[2017-12-11] MEDS: PANTOPRAZOLE 40 MG TABLET PO SCH (08:37)
[2017-12-11] MEDS: predniSONE 20 MG TABLET PO SCH (08:37)
[2017-12-11] MEDS: METOPROLOL SUCCINATE XL 100 MG TABLET PO SCH (08:37)
[2017-12-11] MEDS: TRAZODONE 100 MG TABLET PO SCH (08:43)
[2017-12-11] MEDS: GLYCOPYRROLATE 1 MG TABLET PO SCH (08:44)
[2017-12-11 08:58] VITALS: BP 159/79
[2017-12-11] MEDS ORDERED: ALLOPURINOL 100 MG TABLET PO SCH (10:00)
[2017-12-11] MEDS: ONDANSETRON 4 MG/2 ML VIAL IV PRN (10:10)
[2017-12-11] MEDS: ACETAMINOPHEN 325 MG TABLET PO SCH (10:11)
== END 2017-12-11 11:31 | disposition home or self-care (01) | DRG 191 ==
LOC: N.EDINP 13:26 → N.ED 13:26 → SUATTDRO 16:08 → N.EDINP 17:35 → N.5E 17:45
PROVIDERS: ADMIT Internal Medicine Cardiovascular Disease; ATTEND Internal Medicine Geriatric Medicine
PROC: CLCCHCL (ICD-10-PCS; 2017-12-10 09:15)